=== PATIENT | female | born 1980 | race Caucasian/White ===

== ENCOUNTER 2021-01-26 09:46 | Outpatient (REF) | payer OTHER, SELFPAY ==
[2021-01-26 13:21] LABS: Syphilis Screen Nonreactive (Nonreactive)
[2021-01-26 16:12] LABS: CT PCR NOT DETECTED (Not Detect.); NG PCR NOT DETECTED (Not Detect.)
[2021-01-27 08:21] LABS: BV Int Neg Control Negative (Negative); BV Int Pos Control Positive (Positive)
[2021-01-28 04:30] LABS: HBc Num1 0.06 S/CO (0.00-0.79); HIV AB/AG Nonreactive (Nonreactive); HIV Num 1 0.06 S/CO (0.00-0.99); Hepatitis B Core Antibody Nonreactive (Nonreactive)
[2021-01-28 04:39] LABS: ~HepC Num1 0.15 S/CO (0.00-0.79); ~Hepatitis C Antibody Nonreactive (Nonreactive)
[2021-01-29 09:06] LABS: HPV mRNA E6/E7 rflx Not Detected (Not Detected)
== END 2021-01-26 09:47 | disposition home or self-care (01) ==
LOC: HO.LAB 09:46
PROVIDERS: PCP Internal Medicine; Visit Provider Advanced Practice Midwife
DX: Z01.419 Encounter for gynecological examination (general) (routine) without abnormal findings (principal); Z01.84 Encounter for antibody response examination; Z11.3 Encounter for screening for infections with a predominantly sexual mode of transmission; Z11.4 Encounter for screening for human immunodeficiency virus [HIV]; Z11.51 Encounter for screening for human papillomavirus (HPV); Z11.59 Encounter for screening for other viral diseases; Z20.2 Contact with and (suspected) exposure to infections with a predominantly sexual mode of transmission; N89.8 Other specified noninflammatory disorders of vagina
CPT/HCPCS: 36415; 86704; 86780; 86803; 87389; 87480; 87491; 87510; 87591; 87624; 87660; 88142

== ENCOUNTER 2022-02-28 10:59 | Outpatient (REF) | payer OTHER, SELFPAY ==
[2022-02-28 16:51] LABS: CT PCR NOT DETECTED (Not Detect.); NG PCR NOT DETECTED (Not Detect.)
[2022-03-01 05:38] LABS: HBc Num1 0.09 S/CO (0.00-0.79); HIV AB/AG Nonreactive (Nonreactive); HIV Num 1 0.07 S/CO (0.00-0.99); Hepatitis B Core Antibody Nonreactive (Nonreactive); ~HepC Num1 0.22 S/CO (0.00-0.79); ~Hepatitis C Antibody Nonreactive (Nonreactive)
[2022-03-01 06:01] LABS: Syphilis Screen Nonreactive (Nonreactive)
== END 2022-02-28 11:00 | disposition home or self-care (01) ==
LOC: HO.LAB 10:59
PROVIDERS: Visit Provider Advanced Practice Midwife
DX: Z01.419 Encounter for gynecological examination (general) (routine) without abnormal findings (principal); Z11.3 Encounter for screening for infections with a predominantly sexual mode of transmission; Z11.4 Encounter for screening for human immunodeficiency virus [HIV]; Z20.2 Contact with and (suspected) exposure to infections with a predominantly sexual mode of transmission
CPT/HCPCS: 36415; 86704; 86780; 86803; 87389; 87491; 87591

== ENCOUNTER 2023-05-18 13:38 | Outpatient (AMB) | payer BC, SELFPAY ==
--- NOTE | 2023-05-18 14:14 | MHC.OFFVIS ---
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 Scribed for JARET Milian by Leann Morley center medical director, on 05/18/2023 at 2:25 pm EST. Dietitian Teacher Required: No Information Interpreted: non-clinical & clinical Chief Drafter: Chief Drafter Present (Diana Jordan LISBETH) Accompanied by: Self / Same As Patient Allergies No Known Allergies Allergy (Verified 05/18/23 14:19) Is last menstrual period known: Yes Last menstrual period: 05/09/23 HPI HPI Comments History of Present Illness Details She is a premenopausal woman presenting for annual exam. Doing well with no physician gynecologist concerns. Patient admits she tries to eat a healthy diet including Calcium and Vitamin D. She stays active with exercise. Currently not sexually active. Currently on Xulane and is doing well. Denies vaginal itching and irritation. STD screening offered; she accepts. STD blood work offered; she declines. Denies family hx of breast, colon and ovarian cancer. Last pap smear 01/27/21. UTD on colonoscopy. She denies any contraindications to control such as: migraines with aura, history of DVT or pulmonary emboli, high blood pressure, liver disease, thrombolic disorders, Lupus, +TAMELA, or smoking. 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 Sexual orientation: Straight/Heterosexual Gender identity: Female Female Reproductive History Menstrual Age of Menarche: 14 Date of last menstrual period: 05/09/23 control method: patch Total pregnancies: 0 Date of last pap smear: 01/27/21 Physical Exam Vital Signs: Last Vital Signs BP 110/68 05/18/23 14:17 BMI result Body Mass Index 29.8 Const General: cooperative, healthy appearing, no acute distress, well developed and alert Orientation/consciousness: patient oriented x3 HEENT Head: Yes normal to inspection Eyes General: appearance normal, both eyes and all related structures Neck Neck: Yes normal visual inspection Thyroid: Thyroid normal Chest Chest palpation & inspection: normal inspection of the chest Breast/axilla inspection: normal inspection of the breasts (no puckering, dimpling, peau de orange, retraction, discharge, masses) Breast/axilla palpation: normal palpation of the breasts Resp Effort & Inspection: normal respiratory effort GI Inspection: Yes normal to inspection Palpation (GI): Soft to palpation (to palpation) Rectal Exam - Female: deferred General: Yes bladder normal to inspection External Female Exam: normal external appearance and normal appearance of the urethra Speculum Exam - Vagina: normal appearance of the vagina, normal palpation and normal vaginal discharge Speculum Exam - Cervix: normal appearance of the cervix and normal palpation Bimanual exam- vagina & uterus: normal palpation and normal palpation Bimanual Exam- Adnexa, other: normal adnexae and no masses Skin General skin exam: no rashes or lesions noted Neuro General: patient oriented x3 Cognition (Neuro): normal cognition Extrem General: Yes normal to inspection Psych Attitude: cooperative Thought process: Normal thought process present Assessment & Plan Assessment & Plan (1) Encounter for annual routine gynecological examination: Code(s): Z01.419 - Encounter for gynecological examination (general) (routine) without abnormal findings Plan: Discussed: Current recommendations for pap smears per ASCCP guidelines. Breast awareness and periodic self breast exams. Mammogram ordered. Maintaining a healthy lifestyle including a well balanced diet and routine exercise. Encouraged to use condoms for STD and prevention if become sexually active. All of her questions and concerns were addressed to the best of my ability. RTO in one year for AG. (2) Contraceptive surveillance: Code(s): Z30.40 - Encounter for surveillance of contraceptives, unspecified Plan: Informed of efficacy of Xulane if BMI is >30 She was instructed to go to ER if she develops loss of vision, severe headache that does not resolve, chest pain, diff breathing, abdominal pain, or severe pain or tenderness in extremity. Call the office with any concerns. (3) Potential exposure to STD: Code(s): Z20.2 - Contact with and (suspected) exposure to infections with a predominantly sexual mode of transmission Plan: BV testing and GC/CT panel done today. Await results and treat accordingly. Orders: Orders CT NG by PCR Today Z01.419 - Encounter for gynecological examination (general) (routine) without abnormal findings Medications: Refilled Xulane 150-35 mcg/24 hr (norelgestromin-ethin.estradiol) use 3 patches, then off one week 1 patch transdermal QWEEK 3 weeks 9 patches 4RF NS Coding Level of Care Code Est Pt Prev Care 40-64y(17685) Diagnoses Encounter for annual routine gynecological examination Z01.419 Contraceptive surveillance Z30.40 Potential exposure to STD Z20.2
[2023-05-18 14:17] VITALS: BP 110/68; BMI 29.8
== END 2023-05-18 14:36 | disposition home or self-care (01) ==
PROVIDERS: Visit Provider Advanced Practice Midwife
DX: Z01.419 Encounter for gynecological examination (general) (routine) without abnormal findings (principal); Z30.40 Encounter for surveillance of contraceptives, unspecified; Z20.2 Contact with and (suspected) exposure to infections with a predominantly sexual mode of transmission
CPT/HCPCS: 99396

== ENCOUNTER 2023-05-18 13:38 | Outpatient (REF) | payer BC, SELFPAY ==
[2023-05-19 03:26] LABS: CT PCR NOT DETECTED (Not Detect.); NG PCR NOT DETECTED (Not Detect.)
== END 2023-05-18 13:39 | disposition home or self-care (01) ==
LOC: HO.LNP 13:38
PROVIDERS: Visit Provider Advanced Practice Midwife
DX: Z01.419 Encounter for gynecological examination (general) (routine) without abnormal findings (principal); Z20.2 Contact with and (suspected) exposure to infections with a predominantly sexual mode of transmission
CPT/HCPCS: 0353U

== ENCOUNTER 2023-12-04 03:08 | Inpatient (IN) | payer BC, SELFPAY ==
[2023-12-04] VITALS (11 sets, daily range): BP systolic 95–140; BP diastolic 46–100; PULSE 60–84; RESP 16–20; TEMP 36.6–37.1; O2SAT 96–100; BMI 25.8
--- NOTE | ~2023-12-04 | FL_ITS ---
EXAMINATION: XR FLUOROSCOPY WITH IMAGES CLINICAL INFORMATION: Cholangiogram COMPARISON: Abdomen CT and ultrasound imaging from 12/04/2023. TECHNIQUE: Fluoroscopy Supervised by Dr. Gibbs. Fluoroscopy Time: 38.6 sec. Cumulative Dose: 8.27 mGy. DAP: This information is not provided on the dose summary sheet. Images: 4 images are saved. FL/FL guidance in OR FINDINGS AND IMPRESSION: Please refer to the operative report. The patient is likely undergoing cholecystectomy and a catheter has been placed through the cystic duct. Iodinated contrast fills the common duct and flows into the duodenum. No evidence of common duct dilatation, ductal stone or ductal stricture.
--- NOTE | ~2023-12-04 | US_ITS ---
EXAMINATION: US ABDOMEN LIMITED CLINICAL INFORMATION: Elevated lipase with abdominal pain. COMPARISON: CT abdomen pelvis earlier today TECHNIQUE: Real-time imaging of the right upper quadrant abdominal viscera. FINDINGS: PANCREAS: Normal. LIVER: The liver is mildly enlarged at 17.0 cm The liver contour is normal. Parenchymal echogenicity is normal. No focal hepatic lesion. There is no intrahepatic biliary duct dilatation seen. GALLBLADDER: Some sludge is present in the gallbladder. The gallbladder is physiologically distended without evidence of stones, polyps, wall thickening or pericholecystic fluid. COMMON BILE DUCT: Normal in caliber measuring 0.3 cm in diameter. RIGHT KIDNEY: Normal. No hydronephrosis. No renal calculi or focal parenchymal lesions. The kidney measures 11.4 cm in maximum dimension. FREE FLUID: None. US/US abdomen limited IMPRESSION: Gallbladder sludge.
--- NOTE | ~2023-12-04 | FL_ITS ---
EXAMINATION: XR FLUOROSCOPY WITH IMAGES CLINICAL INFORMATION: ERCP. COMPARISON: Abdominal ultrasound dated 12/04/2023; CT abdomen and pelvis dated 12/04/2023. TECHNIQUE: Fluoroscopy Supervised By: Dr. Augustin Narvaez. Fluoroscopy Time: 229.3 seconds. Cumulative Dose: 63.14 mGy. Images: 16. FINDINGS: The submitted images show an endoscope and injection catheter and guidewire, with injection of the common bile duct and the bilateral hepatic ducts. FL/FL guidance in OR IMPRESSION: Intraoperative fluoroscopic guidance is provided during ERCP. Please see the patient's Operative Report for full procedural details.
--- NOTE | ~2023-12-04 | CT_ITS ---
EXAMINATION: CT ABDOMEN AND PELVIS WITH CONTRAST CLINICAL INFORMATION: Abdominal pain and elevated lipase. COMPARISON: None available. TECHNIQUE: Multidetector volumetric images were obtained from the superior aspect of the liver through the pubic symphysis following administration 85 mL of Omnipaque 350 intravenous contrast. Sagittal and coronal reformatted images were obtained on the technologist's workstation. Oral contrast: No This CT examination was performed using dose optimization techniques as appropriate, variously including the following: *Automated exposure control *Adjustment of mA and/or kV according to patient size (this includes techniques or standardized protocols for targeted exams where dose is matched to indication/reason for exam; i.e. extremities or head) *Use of iterative reconstruction technique DLP: 643 mGy-cm FINDINGS: LUNG BASES: No pulmonary consolidation or pleural effusion. HEPATOBILIARY: Liver has normal size, shape, and attenuation. Gallbladder has a normal appearance. No dilated bile ducts. PANCREAS: Normal. No edema, pancreatic ductal dilatation or mass. SPLEEN: Normal. ADRENAL GLANDS: Normal. KIDNEYS AND URETERS: Kidneys enhance symmetrically. No nephrolithiasis, hydronephrosis or perinephric edema. A focal wedge-shaped cortical defect of the posterior [id number]-tp-[id number] pole of the right kidney is consistent with chronic scarring. This could be sequela of remote pyelonephritis or prior renal infarct. The ureters are unremarkable. BLADDER: Normal. BOWEL AND PERITONEUM: Stomach and small bowel are unremarkable. No dilated loops. No evidence of appendicitis. No colonic wall thickening or mesenteric fat stranding. No free fluid or pneumoperitoneum. ABDOMINAL WALL: Unremarkable. VASCULATURE: Unremarkable. LYMPH NODES: No pathologic sized lymph nodes in the abdomen or pelvis. No inguinal lymphadenopathy. PELVIC VISCERA: No uterine or adnexal mass. No pelvic free fluid. MUSCULOSKELETAL: Unremarkable. CT/CT abdomen pelvis w IV con IMPRESSION: No specific source of pain is identified. No acute imaging abnormalities in the abdomen or pelvis.
[2023-12-04 03:30] LABS: Basophils Percent Auto 0.5 % (0-2); Eosinophils Absolute Auto 0.2 X10*3/uL (0.0-0.4); Hematocrit 39.7 % (37.0-47.0); Hemoglobin 13.3 g/dl (12.0-16.0); Imm Gran Abs Auto 0.03 X10*3/uL (0.00-0.03); Imm Gran Pct Auto 0.4 % (0.0-0.4); Lymphocytes Absolute Auto 3.2 X10*3/uL (1.2-4.9); Lymphocytes Percent Auto 43.3 % (20-40); MANUAL DIFF FLAG NO; Mean Corpuscular HGB Conc 33.5 g/dl (31.0-35.0); Mean Corpuscular Hemoglobin 28.2 pg (27.0-33.0); Mean Corpuscular Volume 84.1 fL (80.0-98.0); Mean Platelet Volume 9.4 fL (9.4-12.3); Monocytes Absolute Auto 0.5 X10*3/uL (0.1-1.2); Monocytes Percent Auto 6.4 % (2-11); Neutrophils Absolute Auto 3.5 x10*3/uL (2.0-8.3); Neutrophils Percent Auto 47.4 % (45-73); Platelet Count 229 X10*3/uL (160-400); Red Blood Count 4.72 X10*6/uL (4.20-5.50); Red Cell Distribution Width 12.7 % (11.0-16.0); White Blood Count 7.4 X10*3/uL (4.8-10.8)
[2023-12-04 03:56] LABS: Alanine Aminotransferase 11 U/L (0-31); Albumin Level 4.1 g/dL (3.5-5.0); Alkaline Phosphatase 64 U/L (39-117); Anion Gap 16 (12-20); Aspartate Amino Transferase 17 U/L (5-31); Bilirubin Total 0.4 mg/dL (0.0-1.0); Blood Urea Nitrogen 14 mg/dL (9-16); Calcium 9.4 mg/dL (8.4-10.2); Carbon Dioxide 23 mmol/L (22-29); Chloride 106 mmol/L (96-108); Estimated Glomerular Filt Rate > 60; Glucose Random 148 mg/dL (60-115); Potassium 3.6 mmol/L (3.3-5.1); Sodium 141 mmol/L (135-145); Total Protein 7.6 g/dL (6.5-8.0)
[2023-12-04 04:26] LABS: Lipase 443 U/L (8-78)
[2023-12-04 05:05] LABS: Ethanol < 10 mg/dL; Lactate Dehydrogenase 132 U/L (122-220); Triglycerides 118 mg/dL (<150)
[2023-12-04] MEDS: ondansetron HCL 4 MG/2 ML VIAL IVPUSH ×2 (05:11→16:05)
--- NOTE | 2023-12-04 05:11 | MHC.EDTECH ---
THIS PCT JUST ASSUMED CARE OF PATIENT ,VITALS TAKEN ,PATIENT URINE SAMPLE COLLECTED AND SENT TO LAB .
[2023-12-04] MEDS: Lactated Ringers 1,000 ML 999 ML IV (05:12)
[2023-12-04 05:13] LABS: Appearance Urine Clear; Color Urine Yellow; Glucose Urine UA Negative (Negative); Leukocyte Esterase Urine Trace (Negative); Nitrite Urine Negative (Negative); PH 5.5 (5.0-9.0); Specific Gravity - Urine 1.025 (1.005-1.025); UMIC TRIGGER UACC YES; Urine Blood Negative (Negative); Urine Ketones Trace mg/dL (Negative); Urine Protein Negative (Neg-Trace)
[2023-12-04 05:15] LABS: UPreg QC Valid YES; Urine Pregnancy NEGATIVE (NEGATIVE)
--- NOTE | 2023-12-04 05:15 | ED.ABDPAIN ---
HPI - Abdominal Pain General Chief Complaint: Abdominal Pain Stated Complaint: abd pain Time Seen by Provider: 12/04/23 04:54 Source: patient and old records reviewed Mode of arrival: ambulatory Limitations: no limitations History of Present Illness HPI narrative: 43 yo female with no sig PMH no surgeries reports intense upper abdominal pain with nausea causing sweats from 1am to 3am now much improved this happened 1 month ago but now is much better. Has normal dinner turkey and nova chili. She states she feels much better now. MD elicited complaint: abdominal pain Pertinent past history: none Onset (ago): hour(s) (between 1-3am) Pain Consistency: constant Location: epigastric Severity: severe Quality: stabbing Radiation: LUQ and RUQ Migration to: no migration Exacerbating factors: movement Relieving factors: nothing Associated symptoms: nausea and other (sweats) Related Data Previous Rx's ?Medication ?Instructions ?Recorded Xulane 150 mcg-35 mcg/24 hr 1 patch transdermal QWEEK 3 weeks 05/18/23 transdermal patch #9 patches (norelgestromin-ethin.estradiol) Allergies Allergy/AdvReac Type Severity Reaction Status Date / Time No Known Allergies Allergy Verified 12/04/23 03:18 Review of Systems Review of Systems Constitutional : No Weight loss, No Fever, No Chills ENT/Mouth : No sore throat, No Rhinorrhea Eyes: No Swelling, No Redness Cardiovascular : No Chest Pain, No SOB, No Edema Respiratory : No Cough, No Sputum, No Wheezing Gastrointestinal : Positive Nausea, no Vomiting, no Diarrhea, positive abdominal Pain, No Hematochezia, No Melena Genitourinary : No Dysuria, No Urinary Frequency, No Hematuria, No Urgency Musculoskeletal : No joint pain, No Myalgias, No Joint Swelling Skin : No Skin Lesions, No rash Neuro : No Weakness, No Numbness, No Dizziness, No Headache Psych : No Anxiety/Panic, No Depression All other systems reviewed and are negative. [facility] Past Medical History Attestation statement: The following information was validated with the patient. 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 Oriented X3. No acute distress. Eyes: Pupils equal, round and reactive to light. ENT: Pharynx normal. Neck: Normal inspection. Neck supple. CVS: Normal heart rate and rhythm. Pulses normal. Respiratory: No respiratory distress. Breath sounds normal. Abdomen: Soft and mild epigastric ttp no rebound Skin: Skin warm and dry. Normal skin color. Normal skin turgor. Extremities: No lower extremity edema. No calf ttp Neuro: Oriented X 3. No motor deficit. No sensory deficit. Medical Decision Making Medical Decision Making [facility] Narrative: 43 yo female with no sig PMH here with c/o severe upper abdominal pain that has since improved she had nausea her triage lipase is elevated - denies hx of ETOH use, no known gallstones at this time labs, IVF, pain control, CT scan for stone/pancreatitis ordered. Differential Diagnosis Differential Diagnoses: The differential diagnosis associated with the presentation includes biliary colic, PUD, pancreatitis, abdominal pain Admission/Observation Consideration of admission/observation: Escalation of care including admission/observation considered lipase continues to trend up will sign out to Dr. Holm pending CT scan and repeat labs Lab Data [facility] Lab Attestation statement: I reviewed the patient's lab results. 12/04/23 03:23 12/04/23 03:23 Labs: Lab Results 05/02/1912/04/23 12/04/23 Range/Units 03:23 05:07 05:44 WBC 7.4 (4.8-10.8) X10*3/uL RBC 4.72 (4.20-5.50) X10*6/uL Hgb 13.3 (12.0-16.0) g/dl Hct 39.7 (37.0-47.0) % MCV 84.1 (80.0-98.0) fL MCH 28.2 (27.0-33.0) pg MCHC 33.5 (31.0-35.0) g/dl RDW 12.7 (11.0-16.0) % Plt Count 229 (160-400) X10*3/uL MPV 9.4 (9.4-12.3) fL Immature Gran % (Auto) 0.4 (0.0-0.4) % Neut % (Auto) 47.4 (45-73) % Lymph % (Auto) 43.3 H (20-40) % [place] % (Auto) 6.4 (2-11) % Eos % (Auto) 2.0 (0-4) % Baso % (Auto) 0.5 (0-2) % Lymph # (Auto) 3.2 (1.2-4.9) X10*3/uL [place] # (Auto) 0.5 (0.1-1.2) X10*3/uL Eos # (Auto) 0.2 (0.0-0.4) X10*3/uL Baso # (Auto) 0.0 (0.0-0.2) X10*3/uL Abs Immat Gran (auto) 0.03 (0.00-0.03) X10*3/uL Absolute Neuts (auto) 3.5 (2.0-8.3) x10*3/uL Absolute Nucleated RBC 0.000 (0.0-0.012) X10*3/uL Nucleated RBC % (auto) 0.0 (0.0-0.2) /100WBC Sodium 141 (135-145) mmol/L Potassium 3.6 (3.3-5.1) mmol/L Chloride 106 (96-108) mmol/L Carbon Dioxide 23 (22-29) mmol/L Anion Gap 16 (12-20) BUN 14 (9-16) mg/dL Creatinine 0.80 (0.5-1.4) mg/dL Estim Creat Clear Calc 100.0 Estimated GFR > 60 Random Glucose 148 H (60-115) mg/dL Calcium 9.4 (8.4-10.2) mg/dL Total Bilirubin 0.4 (0.0-1.0) mg/dL AST 17 (5-31) U/L ALT 11 (0-31) U/L Alkaline Phosphatase 64 (39-117) U/L Lactate Dehydrogenase 132 (122-220) U/L Total Protein 7.6 (6.5-8.0) g/dL Albumin 4.1 (3.5-5.0) g/dL Triglycerides 118 (<150) mg/dL Lipase 443 H 886 H (8-78) U/L Urine Color Yellow Urine Appearance Clear Urine pH 5.5 (5.0-9.0) Ur Specific [place] 1.025 (1.005-1.025) Urine Protein Negative (Neg-Trace) mg/dL Urine Glucose (UA) Negative (Negative) mg/dL Urine Ketones Trace (Negative) mg/dL Urine Blood Negative (Negative) Urine Nitrite Negative (Negative) Ur Leukocyte Esterase Trace H (Negative) Urine RBC 0-2 (0-2) /HPF Urine WBC 0-5 (0-5) /HPF Ur Squamous Epith Cells 0-2 (0-2) /HPF Urine Bacteria None Seen (None Seen) Hyaline Casts 0-2 (0-2) /LPF Urine Test NEGATIVE (NEGATIVE) Ethyl Alcohol < 10 mg/dL Independent Interpretation I performed an independent interpretation of an: CT Scan Independent Historian Clinical information obtained from an independent historian. History obtained from or confirmed by: Friend Medications Administered Discontinued Medications Generic Name Dose Route Start Last Admin Trade Name Freq PRN Reason Stop Dose Admin Lactated Ringer's 1,000 mls @ 999 mls/hr 12/04/23 05:00 12/04/23 05:12 Lr IV 12/04/23 06:00 999 mls/hr .Q1H1M ALVAREZ Administration Iohexol 85 ml 12/04/23 05:30 12/04/23 05:30 Iohexol 350 Mg/Ml 100 Ml Infus..Btl IV 12/04/23 05:31 85 ml ONCE ONE Administration Morphine Sulfate 4 mg 12/04/23 04:52 12/04/23 05:25 Morphine Sulfate 4 Mg/Ml Cartridge IVPUSH 12/04/23 04:53 Not Given ONCE ONE Protocol Ondansetron HCl 4 mg 12/04/23 04:52 12/04/23 05:11 Ondansetron Hcl 4 Mg/2 Ml Vial IVPUSH 12/04/23 04:53 4 mg ONCE ONE Administration Discharge Plan Discharge Clinical Impression: Abdominal pain, Elevated lipase Patient Disposition: Still a Patient Prescriptions: No Action Xulane 150-35 mcg/24 hr patch weekly 1 patch transdermal QWEEK 21 Days Qty: 9 4RF Rx Instructions: use 3 patches, then off one week Print Language: Tunisian
[2023-12-04 05:25] LABS: Bacteria Urine None Seen (None Seen); Hyaline Casts Urine 0-2 /LPF (0-2); RBC Urine 0-2 /HPF (0-2); Squamous Epithelial Cell Urine 0-2 /HPF (0-2); WBC Urine 0-5 /HPF (0-5)
[2023-12-04] MEDS: iohexoL 350 MG/ML 100 ML INFUS..BTL 85 ML IV (05:30)
[2023-12-04 06:16] LABS: Lipase 886 U/L (8-78)
[2023-12-04 07:08] LABS: Bilirubin Direct 0.2 mg/dL (0.0-0.5)
[2023-12-04] MEDS: Ketorolac Tromethamine 15 MG/ML VIAL IVPUSH (07:08)
[2023-12-04 10:29] LABS: Alanine Aminotransferase 12 U/L (0-31); Albumin Level 3.5 g/dL (3.5-5.0); Alkaline Phosphatase 56 U/L (39-117); Anion Gap 14 (12-20); Aspartate Amino Transferase 14 U/L (5-31); Bilirubin Total 0.3 mg/dL (0.0-1.0); Blood Urea Nitrogen 12 mg/dL (9-16); Calcium 9.1 mg/dL (8.4-10.2); Carbon Dioxide 21 mmol/L (22-29); Chloride 109 mmol/L (96-108); Creatinine Clr Calc Pharmacy 108.1; Estimated Glomerular Filt Rate > 60; Glucose Random 92 mg/dL (60-115); Lipase 225 U/L (8-78); Sodium 140 mmol/L (135-145); Total Protein 6.6 g/dL (6.5-8.0)
--- NOTE | 2023-12-04 15:04 | P.HPHOSP_ITS ---
History of Present Illness Date of Service: 12/04/23 Attending physician on admission: [facility] Chief Complaint: abd pain 43 year old female without any significnat PMH presented to the ed earlier today for evaluation of abdominal pain. Report she woke abruptly around 1 am with severe diffuse abdominal pain without any associated fevers, chills, nausea, vomiting, diarrhea, melena, hematochezia. She does report diaphoresis. No sob, lightheadedness, chest pain. No history of prior pain. She tells me for the last 5 months has been working on weight loss and has lost 25 pounds through health diet lower in fat/carbs/calories and increased exercise with weight training. She very rarely consumes alcohol, last drink was 1 aaron on sunday. No drugs or cigarettes. On arrival, VSS. Hematology studies unremarkable. Renal function and electrolyte levels normal. Initial lipase was 443 which was repeated 2 hours later and elevated at 886. CT abdomen/pelvis was negative for any acute intra-abdominal abnormality including acute pancreatitis and pain did ultimately improve. Lipase was again repeated and had decreased to 225. Triglyceride levels normal at 116. LFTs WNL. Ultrasound of the right upper quadrant revealed gallbladder sludge but no obstructing stones. Urinalysis unremarkable. In the ED, given IV ketorolac, 1 L LR, and ondansetron. She will be observed overnight for possible gallstone pancreatitis. Review of Systems 2 Review of Systems: General: +diaphoresis. No fevers, malaise, unintentional weight loss HEENT: No blurred vision, diplopia. No sore throat, nasal congestion, rhinorrhea, sinus pain, ear pain Cardiovascular: No chest pain, palpitations, or leg edema Respiratory: No shortness of breath, wheezing, cough GI: +abd pain. No abdominal pain, nausea, vomiting, diarrhea, constipation, melena, hematochezia : No dysuria, hematuria, increased urinary frequency, decreased urinary output MSK: No myalgia, back pain Neuro: No headaches, weakness, paresthesias Skin: No rashes or lesions [facility] Medical History Pyelonephritis Family History Brother Heart attack, Onset Age: 42 Family/Other Heart attack, Onset Age: 42 Surgical History Hx of wisdom tooth extraction Social History Household Members: None Housing: Apartment Alcohol intake: never Patient Tobacco Use Status: Never used Tobacco Smoked in Last 30 Days: No Use of substances other than those prescribed or required for medical reasons: No Advance Directives: No Advance Directives Information Provided: No Do you have a plan to hurt others: No Plan Patient : No Current occupational status: employed 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 Sexual orientation: Straight/Heterosexual Gender identity: Female Meds Allergies Allergy/AdvReac Type Severity Reaction Status Date / Time No Known Allergies Allergy Verified 12/04/23 03:18 Home Medications ?Medication ?Instructions ?Recorded ?Confirmed ?Last Taken ?Type Probiotic 1 cap PO DAILY 12/04/23 12/04/23 Unknown History ibuprofen 200 mg tablet 400 mg PO Q6H PRN Pain 12/04/23 12/04/23 Unknown History norelgestromin 150 mcg-e.estradiol 1 patch transdermal QMONTH 12/04/23 12/04/23 12/02/23 History 35 mcg/24 hr weekly transderm patch (Xulane) Physical Exam 2 Vital Signs and Narrative: Vital Signs: Last Vital Signs Temp 98.4 F 12/04/23 14:56 Pulse 64 12/04/23 14:56 Resp 18 12/04/23 14:56 BP 108/56 L 12/04/23 14:56 Pulse Ox 96 12/04/23 14:56 O2 Del Method Room Air 12/04/23 14:56 BMI result Body Mass Index 25.8 Constitutional - Awake and Alert, No apparent distress Eyes - PERRLA, EOMI Cardiovascular - S1S2, RRR, No edema Respiratory - Normal lung expansion, Normal respiratory effort, No respiratory distress, CTA bilaterally Gastrointestinal - NT / ND; +BS; No rebound or guarding Extremities - no calf tenderness bilaterally, no swelling Skin - Warm/Dry Neurological - Alert & oriented x3 Psychological - Appropriate affect Results Labs 12/04/23 03:23 12/04/23 09:59 Labs: Laboratory Results - last 24 hr 12/04/23 12/04/23 12/04/23 03:23 05:07 05:44 MCV 84.1 MCH 28.2 MCHC 33.5 RDW 12.7 Plt Count 229 MPV 9.4 Immature Gran % (Auto) 0.4 Neut % (Auto) 47.4 Lymph % (Auto) 43.3 H [place] % (Auto) 6.4 Eos % (Auto) 2.0 Baso % (Auto) 0.5 Lymph # (Auto) 3.2 [place] # (Auto) 0.5 Eos # (Auto) 0.2 Baso # (Auto) 0.0 Abs Immat Gran (auto) 0.03 Absolute Neuts (auto) 3.5 Absolute Nucleated RBC 0.000 Nucleated RBC % (auto) 0.0 Anion Gap 16 Estim Creat Clear Calc 100.0 Estimated GFR > 60 Random Glucose 148 H Calcium 9.4 Total Bilirubin 0.4 Direct Bilirubin 0.2 AST 17 ALT 11 Alkaline Phosphatase 64 Lactate Dehydrogenase 132 Total Protein 7.6 Albumin 4.1 Triglycerides 118 Lipase 443 H 886 H Urine Color Yellow Urine Appearance Clear Urine pH 5.5 Ur Specific [place] 1.025 Urine Protein Negative Urine Glucose (UA) Negative Urine Ketones Trace Urine Blood Negative Urine Nitrite Negative Ur Leukocyte Esterase Trace H Urine RBC 0-2 Urine WBC 0-5 Ur Squamous Epith Cells 0-2 Urine Bacteria None Seen Hyaline Casts 0-2 Urine Test NEGATIVE Ethyl Alcohol < 10 12/04/23 09:59 MCV MCH MCHC RDW Plt Count MPV Immature Gran % (Auto) Neut % (Auto) Lymph % (Auto) [place] % (Auto) Eos % (Auto) Baso % (Auto) Lymph # (Auto) [place] # (Auto) Eos # (Auto) Baso # (Auto) Abs Immat Gran (auto) Absolute Neuts (auto) Absolute Nucleated RBC Nucleated RBC % (auto) Anion Gap 14 Estim Creat Clear Calc 108.1 Estimated GFR > 60 Random Glucose 92 Calcium 9.1 Total Bilirubin 0.3 Direct Bilirubin AST 14 ALT 12 Alkaline Phosphatase 56 Lactate Dehydrogenase Total Protein 6.6 Albumin 3.5 Triglycerides Lipase 225 H Urine Color Urine Appearance Urine pH Ur Specific [place] Urine Protein Urine Glucose (UA) Urine Ketones Urine Blood Urine Nitrite Ur Leukocyte Esterase Urine RBC Urine WBC Ur Squamous Epith Cells Urine Bacteria Hyaline Casts Urine Test Ethyl Alcohol Imaging Radiologist's Impressions: Impressions Abdomen/Pelvis CT 12/04/23 05:30 IMPRESSION: No specific source of pain is identified. No acute imaging abnormalities in the abdomen or pelvis. Abdomen Ultrasound 12/04/23 09:54 IMPRESSION: Gallbladder sludge. Assessment and Plan (1) Acute pancreatitis: Status: Acute (2) Biliary sludge: Status: Acute Plan 43 year old female without any significant PMH to be observed for gallstone pancreatitis. #Acute abdominal pain- r/t passed gallstone causing acute pancreatitis -Lipase 400 --> 800 --> 225. LFTs wnl. Triglycerides WNL. Ct without evidence of acute intraabdominal abn. US abd shows gallbladder sludge -Continue ivf -clear liquid diet, advance as tolerated -antiemetics prn -pain management prn -general surgery consult DVT prophylaxis- SCPs, early ambulation full code Quality Stroke Does the patient have a stroke diagnosis?: No VTE Prior VTE?: No VTE Risk Level:: Medical - moderate - high VTE Device Contraindication: N/A - Device Ordered VTE Drug Contraindication: Treatment Not Indicated
--- NOTE | 2023-12-04 15:09 | PHA.MEDREC ---
Pharmacy Consult ? Medication Reconciliation Pharmacy has completed the medication reconciliation. Patient reported medicaitons. Alexandria Bradley, RosalinaD
[2023-12-04] MEDS: 0.9 % Sodium Chloride 1,000 ML 100 ML IVCONT (15:58)
--- NOTE | 2023-12-04 16:00 | PM.CNGS ---
History of Present Illness Consult details Consult date: 12/04/23 Narrative: Patient is an otherwise healthy 43-year-old female who presents here with acute onset of epigastric/upper abdominal pain. She has never had this before. Otherwise has regular bowel habits. Never been jaundiced before. Has never had any biliary symptoms. Patient is a nondrinker. Workup including scans and labs consistent with presumptive diagnosis of gallstone pancreatitis. Chart was reviewed and patient evaluated PMFSH Past Medical History Medical History Pyelonephritis Family History Family History Brother Heart attack, Onset Age: 42 Family/Other Heart attack, Onset Age: 42 Surgical History Surgical History Hx of wisdom tooth extraction Social History Social History Household Members: None Housing: Apartment Alcohol intake: never Patient Tobacco Use Status: Never used Tobacco Smoked in Last 30 Days: No Use of substances other than those prescribed or required for medical reasons: No Advance Directives: No Advance Directives Information Provided: No Do you have a plan to hurt others: No Plan Patient : No Current occupational status: employed 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 Sexual orientation: Straight/Heterosexual Gender identity: Female Meds Allergies Allergy/AdvReac Type Severity Reaction Status Date / Time No Known Allergies Allergy Verified 12/04/23 03:18 Active Medications: Current Medications Acetaminophen (Acetaminophen 325 Mg Tablet) 650 mg PO Q6H PRN PRN Reason: Pain, Mild (Pain Scale 1-3) Sodium Chloride (Ns) 1,000 mls @ 100 mls/hr IVCONT .Q10H ALVAREZ Morphine Sulfate (Morphine Sulfate 2 Mg/Ml Cartridge) 2 mg IVPUSH Q4H PRN; Protocol PRN Reason: Pain, Severe (Pain Scale 7-10) Ondansetron HCl (Ondansetron Hcl 4 Mg/2 Ml Vial) 4 mg IVPUSH Q8H PRN PRN Reason: Nausea and Vomiting Oxycodone HCl (Oxycodone Hcl Immed Release 5 Mg Tablet) 5 mg PO Q6H PRN PRN Reason: Pain, Moderate(Pain Scale 4-6) Senna (Sennosides 8.6 Mg Tablet) 17.2 mg PO BEDTIME PRN PRN Reason: Constipation Home Medications ?Medication ?Instructions ?Recorded ?Confirmed ?Last Taken ?Type Probiotic 1 cap PO DAILY 12/04/23 12/04/23 Unknown History ibuprofen 200 mg tablet 400 mg PO Q6H PRN Pain 12/04/23 12/04/23 Unknown History norelgestromin 150 mcg-e.estradiol 1 patch transdermal QMONTH 12/04/23 12/04/23 12/02/23 History 35 mcg/24 hr weekly transderm patch (Xulane) Physical Exam Vital Signs: Vital Signs: Last Vital Signs Temp 98.4 F 12/04/23 14:56 Pulse 84 12/04/23 15:06 Resp 18 12/04/23 14:56 BP 113/71 12/04/23 15:06 Pulse Ox 96 12/04/23 14:56 O2 Del Method Room Air 12/04/23 14:56 BMI result Body Mass Index 25.8 Eyes: Other: Anicteric Chest: Other: Chest breath sounds bilaterally, HS 1 in 2 GI: Other: Abdomen modestly corpulent, soft, mild epigastric tenderness but no evidence of any guarding, rebound, rigidity Results Labs 12/04/23 03:23 12/04/23 09:59 Labs: Abnormal lab results 12/04/23 12/04/23 12/04/23 Range/Units 03:23 05:07 05:44 Lymph % (Auto) 43.3 H (20-40) % Chloride (96-108) mmol/L Carbon Dioxide (22-29) mmol/L Random Glucose 148 H (60-115) mg/dL Lipase 443 H 886 H (8-78) U/L Ur Leukocyte Esterase Trace H (Negative) 12/04/23 Range/Units 09:59 Lymph % (Auto) (20-40) % Chloride 109 H (96-108) mmol/L Carbon Dioxide 21 L (22-29) mmol/L Random Glucose (60-115) mg/dL Lipase 225 H (8-78) U/L Ur Leukocyte Esterase (Negative) Short CBC 12/04/23 Range/Units 03:23 WBC 7.4 (4.8-10.8) X10*3/uL Hgb 13.3 (12.0-16.0) g/dl Hct 39.7 (37.0-47.0) % Plt Count 229 (160-400) X10*3/uL BMP 12/04/23 12/04/23 03:23 09:59 Sodium 141 140 Potassium 3.6 4.0 Chloride 106 109 H Carbon Dioxide 23 21 L BUN 14 12 Creatinine 0.80 0.74 Calcium 9.4 9.1 Liver Function 12/04/23 12/04/23 Range/Units 03:23 09:59 Total Bilirubin 0.4 0.3 (0.0-1.0) mg/dL Direct Bilirubin 0.2 (0.0-0.5) mg/dL AST 17 14 (5-31) U/L ALT 11 12 (0-31) U/L Alkaline Phosphatase 64 56 (39-117) U/L Albumin 4.1 3.5 (3.5-5.0) g/dL Urine 12/04/23 Range/Units 05:07 Urine Color Yellow Urine Appearance Clear Urine pH 5.5 (5.0-9.0) Ur Specific [place] 1.025 (1.005-1.025) Urine Protein Negative (Neg-Trace) mg/dL Urine Glucose (UA) Negative (Negative) mg/dL Urine Test NEGATIVE (NEGATIVE) All other labs normal. Assessment and Plan (1) Biliary sludge: Status: Acute (2) Acute pancreatitis: Status: Acute Plan Presumptive diagnosis of gallstone pancreatitis. Patient is currently undergoing restorative measures with serial exams and labs. Consideration for laparoscopic cholecystectomy once patient is clinically stable and labs normalize would be considered. This was reviewed with the patient. All questions answered. Further interventions /studies will be directed by the patient's clinical course. Consider GI consultation as well. Procedures Date of Service Date of Service: 12/04/23
[2023-12-05] VITALS (13 sets, daily range): BP systolic 109–134; BP diastolic 54–87; PULSE 56–83; RESP 15–19; TEMP 36.4–37.2; O2SAT 96–100; BMI 25.4; BMI 30.1
[2023-12-05] MEDS: ondansetron HCL 4 MG/2 ML VIAL IVPUSH ×2 (00:20→16:54)
[2023-12-05] MEDS: 0.9 % Sodium Chloride 1,000 ML 100 ML IVCONT ×2 (00:20→11:03)
[2023-12-05 06:32] LABS: MANUAL DIFF FLAG NO
[2023-12-05 06:39] LABS: Basophils Percent Auto 0.6 % (0-2); Eosinophils Absolute Auto 0.2 X10*3/uL (0.0-0.4); Eosinophils Percent Auto 2.6 % (0-4); Hematocrit 34.7 % (37.0-47.0); Hemoglobin 11.2 g/dl (12.0-16.0); Imm Gran Abs Auto 0.04 X10*3/uL (0.00-0.03); Imm Gran Pct Auto 0.6 % (0.0-0.4); Lymphocytes Absolute Auto 2.3 X10*3/uL (1.2-4.9); Mean Corpuscular HGB Conc 32.3 g/dl (31.0-35.0); Mean Corpuscular Hemoglobin 28.1 pg (27.0-33.0); Mean Corpuscular Volume 87.2 fL (80.0-98.0); Mean Platelet Volume 9.4 fL (9.4-12.3); Monocytes Absolute Auto 0.5 X10*3/uL (0.1-1.2); Monocytes Percent Auto 7.1 % (2-11); Neutrophils Absolute Auto 4.1 x10*3/uL (2.0-8.3); Neutrophils Percent Auto 57.1 % (45-73); Platelet Count 166 X10*3/uL (160-400); Red Blood Count 3.98 X10*6/uL (4.20-5.50); Red Cell Distribution Width 12.7 % (11.0-16.0); White Blood Count 7.2 X10*3/uL (4.8-10.8)
[2023-12-05 06:50] LABS: Anion Gap 12 (12-20); Blood Urea Nitrogen 12 mg/dL (9-16); Calcium 8.1 mg/dL (8.4-10.2); Carbon Dioxide 21 mmol/L (22-29); Chloride 110 mmol/L (96-108); Estimated Glomerular Filt Rate > 60; Glucose Random 67 mg/dL (60-115); Sodium 139 mmol/L (135-145)
--- NOTE | 2023-12-05 07:38 | P.PNIM_ITS ---
Subjective Subjective Date of Service: 12/05/23 Interval History: Seen in follow-up for gallstone pancreatitis Interval history: So reporting 2-3/10 right upper quadrant pain. No nausea or vomiting. No other complaints at this time. Plan for lap george later today Review of Systems Review of Systems: Yes all other systems are reviewed and are negative Physical Exam 2 Vital Signs: Vital Signs: Last Vital Signs Temp 98.0 F 12/05/23 04:55 Pulse 64 12/05/23 04:55 Resp 19 12/05/23 04:55 BP 109/68 12/05/23 04:55 Pulse Ox 99 12/05/23 04:55 O2 Del Method Room Air 12/05/23 04:55 BMI result Body Mass Index 25.8 Constitutional - Awake and Alert, No apparent distress Eyes - PERRLA, EOMI Cardiovascular - S1S2, RRR, No edema Respiratory - Normal lung expansion, Normal respiratory effort, No respiratory distress, CTA bilaterally Gastrointestinal - RUQ ttp with + lloyd sign. ND; +BS; No rebound Extremities - no calf tenderness bilaterally, no swelling Skin - Warm/Dry Neurological - Alert & oriented x3 Psychological - Appropriate affect Objective Data Active Medications Acetaminophen (Acetaminophen 325 Mg Tablet) 650 mg PO Q6H PRN PRN Reason: Pain, Mild (Pain Scale 1-3) Sodium Chloride (Ns) 1,000 mls @ 100 mls/hr IVCONT .Q10H ALVAREZ Last Admin: 12/05/23 00:20 Dose: 100 mls/hr Documented By: WILLIAM Cefotetan Disodium 2 gm/ (Sodium Chloride) 50 mls @ 100 mls/hr IV PREOP ONE Stop: 12/05/23 07:44 Morphine Sulfate (Morphine Sulfate 2 Mg/Ml Cartridge) 2 mg IVPUSH Q4H PRN; Protocol PRN Reason: Pain, Severe (Pain Scale 7-10) Ondansetron HCl (Ondansetron Hcl 4 Mg/2 Ml Vial) 4 mg IVPUSH Q8H PRN PRN Reason: Nausea and Vomiting Last Admin: 12/05/23 00:20 Dose: 4 mg Documented By: WILLIAM Oxycodone HCl (Oxycodone Hcl Immed Release 5 Mg Tablet) 5 mg PO Q6H PRN PRN Reason: Pain, Moderate(Pain Scale 4-6) Senna (Sennosides 8.6 Mg Tablet) 17.2 mg PO BEDTIME PRN PRN Reason: Constipation Labs 12/05/23 06:26 12/05/23 06:26 Labs: Laboratory Results - last 24 hr 12/04/23 12/05/23 09:59 06:26 MCV 87.2 MCH 28.1 MCHC 32.3 RDW 12.7 Plt Count 166 D MPV 9.4 Immature Gran % (Auto) 0.6 H Neut % (Auto) 57.1 Lymph % (Auto) 32.0 [place] % (Auto) 7.1 Eos % (Auto) 2.6 Baso % (Auto) 0.6 Lymph # (Auto) 2.3 [place] # (Auto) 0.5 Eos # (Auto) 0.2 Baso # (Auto) 0.0 Abs Immat Gran (auto) 0.04 H Absolute Neuts (auto) 4.1 Absolute Nucleated RBC 0.000 Nucleated RBC % (auto) 0.0 Anion Gap 14 12 Estim Creat Clear Calc 108.1 100.0 Estimated GFR > 60 > 60 Random Glucose 92 67 Calcium 9.1 8.1 L D Total Bilirubin 0.3 AST 14 ALT 12 Alkaline Phosphatase 56 Total Protein 6.6 Albumin 3.5 Lipase 225 H Assessment and Plan (1) Biliary sludge: Status: Acute (2) Acute pancreatitis: Status: Acute Plan 43 year old female without any significant PMH to be observed for gallstone pancreatitis. #Acute gallstone pancreatitis -Lipase 400 --> 800 --> 225. LFTs wnl. Triglycerides WNL. Ct without evidence of acute intraabdominal abn. US abd shows gallbladder sludge -s/p lap george with cholangiogram 12/04. Per operative report, multiple small stones in the common bile duct with flow entering the duodenum seen -per GI, plan for ERCP tomorrow. NPO after midnight -Continue ivf -antiemetics prn -pain management prn -general surgery input appreciated. Gastroenterology input appreciated DVT prophylaxis- SCPs, early ambulation full code Pt requires inpatient stay at least 2 midnights for management of acute gallstone pancreatitis s/p lap cholecystectomy with evidence of gallstones in the common bile duct putting patient at risk for recurrent gallstone pancreatitis and will undergo ERCP tomorrow with ongoing expert consultation Quality Stroke Does the patient have a stroke diagnosis?: No VTE Prior VTE?: No VTE Risk Level:: Medical - moderate - high VTE Device Contraindication: N/A - Device Ordered VTE Drug Contraindication: Treatment Not Indicated
--- NOTE | 2023-12-05 09:28 | PC.NURSE ---
report given to SSS, SSS to pick patient up around 10am
--- NOTE | 2023-12-05 10:13 | PM.PNGS ---
Subjective Subjective Date of Service: 12/05/23 <Yamila Holland PA-C - Last Filed: 12/05/23 10:16> 12/05/23 <Percy Gibbs MD - Last Filed: 12/05/23 15:01> Interval history: She reports mild epigastric pain, significantly improved from admission. Reports 1 prior episode of similar pain about a month ago. <Yamila Holland PA-C - Last Filed: 12/05/23 10:16> Physical Exam Vital Signs: Vital Signs: Last Vital Signs Temp 98.0 F 12/05/23 04:55 Pulse 64 12/05/23 04:55 Resp 19 12/05/23 04:55 BP 109/68 12/05/23 04:55 Pulse Ox 99 12/05/23 04:55 O2 Del Method Room Air 12/05/23 04:55 BMI result Body Mass Index 25.8 <DAREK Hill Last Filed: 12/05/23 10:16> Const: General: comfortable, no acute distress and alert <Yamila Holland PA-C - Last Filed: 12/05/23 10:16> Orientation/consciousness: patient oriented x3 <DAREK Hill Last Filed: 12/05/23 10:16> Resp: Effort & Inspection: normal respiratory effort <DAREK Hill Last Filed: 12/05/23 10:16> GI: Inspection: No distended <DAREK Hill Last Filed: 12/05/23 10:16> Palpation (GI): Soft to palpation and Tenderness to palpation present (GI) in the epigastrum and in the RUQ; Espitia's sign negative and with no rebound tenderness <DAREK Hill Last Filed: 12/05/23 10:16> Skin: General skin exam: no rashes or lesions noted and no jaundice <DAREK Hill Last Filed: 12/05/23 10:16> Neuro: General: patient oriented x3 and moves all extremities <DAREK Hill Last Filed: 12/05/23 10:16> Objective Data Active Medications Acetaminophen (Acetaminophen 325 Mg Tablet) 650 mg PO Q6H PRN PRN Reason: Pain, Mild (Pain Scale 1-3) Sodium Chloride (Ns) 1,000 mls @ 100 mls/hr IVCONT .Q10H ALVAREZ Last Admin: 12/05/23 00:20 Dose: 100 mls/hr Documented By: WILLIAM Morphine Sulfate (Morphine Sulfate 2 Mg/Ml Cartridge) 2 mg IVPUSH Q4H PRN; Protocol PRN Reason: Pain, Severe (Pain Scale 7-10) Non-Formulary Medication (Norelgestromin-Ethin.Estradiol [Xulane]) 1 patch TRANSDERMA Q30D ALVAREZ Ondansetron HCl (Ondansetron Hcl 4 Mg/2 Ml Vial) 4 mg IVPUSH Q8H PRN PRN Reason: Nausea and Vomiting Last Admin: 12/05/23 00:20 Dose: 4 mg Documented By: WILLIAM Oxycodone HCl (Oxycodone Hcl Immed Release 5 Mg Tablet) 5 mg PO Q6H PRN PRN Reason: Pain, Moderate(Pain Scale 4-6) Senna (Sennosides 8.6 Mg Tablet) 17.2 mg PO BEDTIME PRN PRN Reason: Constipation <Yamila Holland PA-C - Last Filed: 12/05/23 10:16> Labs CBC & Chem 7: 12/05/23 06:26 12/05/23 06:26 <Yamila Holland PA-C - Last Filed: 12/05/23 10:16> Labs: Laboratory Results - last 24 hr 12/04/23 12/05/23 09:59 06:26 MCV 87.2 MCH 28.1 MCHC 32.3 RDW 12.7 Plt Count 166 D MPV 9.4 Immature Gran % (Auto) 0.6 H Neut % (Auto) 57.1 Lymph % (Auto) 32.0 [place] % (Auto) 7.1 Eos % (Auto) 2.6 Baso % (Auto) 0.6 Lymph # (Auto) 2.3 [place] # (Auto) 0.5 Eos # (Auto) 0.2 Baso # (Auto) 0.0 Abs Immat Gran (auto) 0.04 H Absolute Neuts (auto) 4.1 Absolute Nucleated RBC 0.000 Nucleated RBC % (auto) 0.0 Anion Gap 14 12 Estim Creat Clear Calc 108.1 100.0 Estimated GFR > 60 > 60 Random Glucose 92 67 Calcium 9.1 8.1 L D Total Bilirubin 0.3 AST 14 ALT 12 Alkaline Phosphatase 56 Total Protein 6.6 Albumin 3.5 Lipase 225 H <Yamila Holland PA-C - Last Filed: 12/05/23 10:16> Procedures Date of Service Date of Service: 12/05/23 <Yamila Holland PA-C - Last Filed: 12/05/23 10:16> 12/05/23 <Percy Gibbs MD - Last Filed: 12/05/23 15:01> Progress Note: A&P Assessment and plan (1) Acute pancreatitis: Status: Acute <DAREK Hill Last Filed: 12/05/23 10:16> (2) Biliary sludge: Status: Acute <Yamila Holland PA-C - Last Filed: 12/05/23 10:16> Assessment and Plan: 43 year old female admitted with presumed gallstone pancreatitis. Her symptoms have significantly improved and lipase downtrended last night. Discussed proceeding with laparoscopy cholecystectomy possible open during this admission to prevent recurrence or advancing diet and if tolerating she can f/u in office to schedule CCY as outpatient. She would like to think about it but is leaning towards surgery. Will return later today. Keep NPO for now. <DAREK Hill Last Filed: 12/05/23 10:16> Time Spent With Patient Time: Total time managing care of this patient today ____ minutes. <DAREK Hill Last Filed: 12/05/23 10:16> Quality Stroke Does the patient have a stroke diagnosis?: No <DAREK Hill Last Filed: 12/05/23 10:16> VTE Prior VTE?: No <DAREK Hill Last Filed: 12/05/23 10:16> VTE Risk Level:: Medical - moderate - high <DAREK Hill Last Filed: 12/05/23 10:16> VTE Device Contraindication: N/A - Device Ordered <Yamila Holland PA-C - Last Filed: 12/05/23 10:16> VTE Drug Contraindication: Treatment Not Indicated <Yamila Holland PA-C - Last Filed: 12/05/23 10:16>
--- NOTE | 2023-12-05 10:57 | P.CONAN_ITS ---
[facility] Active Problems Active Problems: All Active Problems Recent weight loss (Acute) Biliary sludge (Acute) Acute pancreatitis (Acute) Encounter for annual routine gynecological examination (Acute) Past Medical History Medical History Pyelonephritis Functional capacity: wheelchair bound Family History Family History Brother Heart attack, Onset Age: 42 Family/Other Heart attack, Onset Age: 42 Surgical History Surgical History Hx of wisdom tooth extraction History of Problems with Anesthesia: No Social History Social History Household Members: None Housing: Apartment Alcohol intake: never Patient Tobacco Use Status: Never used Tobacco Smoked in Last 30 Days: No Use of substances other than those prescribed or required for medical reasons: No Are you DNR?: No Advance Directives: No Advance Directives Information Provided: No Do you have a plan to hurt others: No Plan Patient : No Current occupational status: employed 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 Sexual orientation: Straight/Heterosexual Gender identity: Female Meds Allergies Allergy/AdvReac Type Severity Reaction Status Date / Time No Known Allergies Allergy Verified 12/04/23 03:18 Active Medications: Current Medications Acetaminophen (Acetaminophen 325 Mg Tablet) 650 mg PO Q6H PRN PRN Reason: Pain, Mild (Pain Scale 1-3) Sodium Chloride (Ns) 1,000 mls @ 100 mls/hr IVCONT .Q10H ALVAREZ Last Admin: 12/05/23 00:20 Dose: 100 mls/hr Morphine Sulfate (Morphine Sulfate 2 Mg/Ml Cartridge) 2 mg IVPUSH Q4H PRN; Protocol PRN Reason: Pain, Severe (Pain Scale 7-10) Non-Formulary Medication (Norelgestromin-Ethin.Estradiol [Xulane]) 1 patch TRANSDERMA Q30D ALVAREZ Ondansetron HCl (Ondansetron Hcl 4 Mg/2 Ml Vial) 4 mg IVPUSH Q8H PRN PRN Reason: Nausea and Vomiting Last Admin: 12/05/23 00:20 Dose: 4 mg Oxycodone HCl (Oxycodone Hcl Immed Release 5 Mg Tablet) 5 mg PO Q6H PRN PRN Reason: Pain, Moderate(Pain Scale 4-6) Senna (Sennosides 8.6 Mg Tablet) 17.2 mg PO BEDTIME PRN PRN Reason: Constipation Home Medications ?Medication ?Instructions ?Recorded ?Confirmed ?Last Taken ?Type Probiotic 1 cap PO DAILY 12/04/23 12/04/23 Unknown History ibuprofen 200 mg tablet 400 mg PO Q6H PRN Pain 12/04/23 12/04/23 Unknown History norelgestromin 150 mcg-e.estradiol 1 patch transdermal QMONTH 12/04/23 12/04/23 12/02/23 History 35 mcg/24 hr weekly transderm patch (Xulane) Exam Height,Weight and Vital Signs: Height 5 ft 10 in Weight 81.647 kg Last Vital Signs Temp 98.0 F 12/05/23 04:55 Pulse 64 12/05/23 04:55 Resp 19 12/05/23 04:55 BP 109/68 12/05/23 04:55 Pulse Ox 99 12/05/23 04:55 O2 Del Method Room Air 12/05/23 04:55 Pertinent Lab Results Pertinent Lab Results: Laboratory Tests 12/04/23 12/04/23 12/04/23 03:23 05:07 05:44 WBC 7.4 RBC 4.72 Hgb 13.3 Hct 39.7 MCV 84.1 MCH 28.2 MCHC 33.5 RDW 12.7 Plt Count 229 MPV 9.4 Immature Gran % (Auto) 0.4 Neut % (Auto) 47.4 Lymph % (Auto) 43.3 H [place] % (Auto) 6.4 Eos % (Auto) 2.0 Baso % (Auto) 0.5 Lymph # (Auto) 3.2 [place] # (Auto) 0.5 Eos # (Auto) 0.2 Baso # (Auto) 0.0 Abs Immat Gran (auto) 0.03 Absolute Neuts (auto) 3.5 Absolute Nucleated RBC 0.000 Nucleated RBC % (auto) 0.0 Sodium 141 Potassium 3.6 Chloride 106 Carbon Dioxide 23 Anion Gap 16 BUN 14 Creatinine 0.80 Estim Creat Clear Calc 100.0 Estimated GFR > 60 Random Glucose 148 H Calcium 9.4 Total Bilirubin 0.4 Direct Bilirubin 0.2 AST 17 ALT 11 Alkaline Phosphatase 64 Lactate Dehydrogenase 132 Total Protein 7.6 Albumin 4.1 Triglycerides 118 Lipase 443 H 886 H Urine Color Yellow Urine Appearance Clear Urine pH 5.5 Ur Specific [place] 1.025 Urine Protein Negative Urine Glucose (UA) Negative Urine Ketones Trace Urine Blood Negative Urine Nitrite Negative Ur Leukocyte Esterase Trace H Urine RBC 0-2 Urine WBC 0-5 Ur Squamous Epith Cells 0-2 Urine Bacteria None Seen Hyaline Casts 0-2 Urine Test NEGATIVE Ethyl Alcohol < 10 12/04/23 12/05/23 09:59 06:26 WBC 7.2 RBC 3.98 L Hgb 11.2 L Hct 34.7 L MCV 87.2 MCH 28.1 MCHC 32.3 RDW 12.7 Plt Count 166 D MPV 9.4 Immature Gran % (Auto) 0.6 H Neut % (Auto) 57.1 Lymph % (Auto) 32.0 [place] % (Auto) 7.1 Eos % (Auto) 2.6 Baso % (Auto) 0.6 Lymph # (Auto) 2.3 [place] # (Auto) 0.5 Eos # (Auto) 0.2 Baso # (Auto) 0.0 Abs Immat Gran (auto) 0.04 H Absolute Neuts (auto) 4.1 Absolute Nucleated RBC 0.000 Nucleated RBC % (auto) 0.0 Sodium 140 139 Potassium 4.0 4.0 Chloride 109 H 110 H Carbon Dioxide 21 L 21 L Anion Gap 14 12 BUN 12 12 Creatinine 0.74 0.80 Estim Creat Clear Calc 108.1 100.0 Estimated GFR > 60 > 60 Random Glucose 92 67 Calcium 9.1 8.1 L D Total Bilirubin 0.3 Direct Bilirubin AST 14 ALT 12 Alkaline Phosphatase 56 Lactate Dehydrogenase Total Protein 6.6 Albumin 3.5 Triglycerides Lipase 225 H Urine Color Urine Appearance Urine pH Ur Specific [place] Urine Protein Urine Glucose (UA) Urine Ketones Urine Blood Urine Nitrite Ur Leukocyte Esterase Urine RBC Urine WBC Ur Squamous Epith Cells Urine Bacteria Hyaline Casts Urine Test Ethyl Alcohol Airway Mallampati Class: II (braces) TM Dist: >3cm Neck ROM: Full Loose/Missing/Broken Teeth: No Heart: RRR Lungs: CTA Assessment and Plan Assessment Anesthesia Assessment: Anesthesia Plan Discussed and Chart Reviewed Final Anesthetic Review History of Problems with Anesthesia: No ASA Class: II Final Preanesthetic Review: Meds/Allgs Chart Reviewed, Consent Obtained/Reviewed and Anes Risks/Benef Reviewed Patient Risk: Low Procedure Risk: Intermediate Anesthetic Plan Anesthetic Plan: GA Disposition: Standard PACU
--- NOTE | 2023-12-05 13:45 | PC.NURSE ---
Hub was notified that the patient went to the OR.
[2023-12-05] MEDS: HYDROmorphone HCl 0.5 MG/0.5 ML SYRINGE 0.25 MG IVPUSH ×2 (14:00→14:05)
[2023-12-05] MEDS: Lactated Ringers 1,000 ML 80 ML IVCONT (14:18)
--- NOTE | 2023-12-05 14:58 | W.PM.OPN ---
Operative Note Operative Note Date of Service: 12/05/23 Narrative: Preoperative diagnosis: [] Gallstone pancreatitis Postop diagnosis: [] The same Procedure [] laparoscopic cholecystectomy with cholangiogram Surgeon: [] Sai Moisture Machine Tender: [] Skyler Type of Anesthesia: [] General Indication for surgery: [] Intraoperative findings demonstrated on their cholangiogram multiple small stones in the common bile duct with flow entering the duodenal. Omental and gastric adhesions to the gallbladder. Gallbladder also had multiple small stones Findings: [] Patient brought to the operating room, placed on operative table supine position, after adequate level of general anesthesia was induced, the patient's abdomen which was moderately corpulent was prepped and draped in usual sterile fashion. Using a supraumbilical curvilinear incision, Mckeon technique was used to insufflate abdominal cavity to 15 mm of CO2. Upper midline and right subcostal ports were placed under direct laparoscopic view, and the patient placed in reverse Trendelenburg position, tilted to the left. Findings were as noted above. Common bile duct was identified and preserved throughout the procedure. Gallbladder was grasped using laparoscopic graspers, and retracted superiorly and laterally. Omental and gastric adhesions were gently swept off the gallbladder were its hilum was approached. Cystic artery and cystic duct were each identified, circumferentially skeletonized, traced directly into the gallbladder, and critical view obtained. A clip was placed on the cystic duct/Lorena's pouch junction and a choly -cystodochotocotomy performed and a cholangiocatheter advanced into the cystic duct. Cholangiogram findings were as noted above. Cystic duct was then clipped proximally x2 and transected along the cystic artery transected. Gallbladder was then cauterized in the gallbladder fossa using Bovie. Specimen placed in an Endo-Catch bag, a retrieved through the umbilical port. Abdominal cavity was copiously irrigated, secured hemostasis. All ports removed under direct laparoscopic view. Wounds were closed in the following manner; umbilical wound has fascia reapproximated using interrupted 0 Vicryl sutures. Skin wounds were closed using subcuticular 4-0 Vicryl sutures followed by Steri-Strips and sterile dressings. Wounds were infiltrated 0.5% Marcaine at completion. Sponge, needle, and instrument counts reported correct. Patient tolerated the procedure well and emerged from anesthesia stable condition. EBL minimal
--- NOTE | 2023-12-05 16:04 | PM.EVENT ---
Event Note Date of Service: 12/05/23 Event Note: GI pt seen and examined in PACU, consult dictated. ERCP planned for tomorrow. She is aware of risks and benefits and agrees to proceed. Time Spent With Patient Time: Total time managing care of this patient today ____ minutes.
--- NOTE | 2023-12-05 16:05 | MHC.SHP ---
Pre-Procedural Eval Section A - 24 Hr Update-Section A only Date of Service: 12/05/23 The patient is an INPATIENT: Yes Changes since office visit: No Cold of Flu in the past 2 weeks, No New Medical Problems, No Changes in Medication and No Patient answered all questions The patient has been examined within 24 hours of the surgical procedure. The History & Physical has been completed within 30 days and I have reviewed it.: Yes Section B - Complete if H&P > 30 days Chief Complaint: gallstone pancreatitis? Allergies: Allergies Allergy/AdvReac Type Severity Reaction Status Date / Time No Known Allergies Allergy Verified 12/04/23 03:18 Plan I have reviewed the history and physical and performed a pertinent physical examination on my patient. No changes have occurred unless specified. Time Spent With Patient Time: Total time managing care of this patient today ____ minutes.
--- NOTE | 2023-12-05 16:51 | CONS_ITS ---
DATE OF SERVICE: 12/05/2023 REFERRING PHYSICIAN: IRINA Catalan REASON FOR CONSULTATION: Gallstone pancreatitis. HISTORY OF PRESENT ILLNESS: The patient is a pleasant 43-year-old woman, who was admitted to the hospital on December 03 with acute pancreatitis presumed secondary to gallstones. At that time, she had laboratory studies showing elevation of her lipase at 886 with normal liver function tests. Imaging was undertaken with abdominal ultrasound and CT scanning, which showed no acute imaging abnormalities on CT and gallbladder sludge on ultrasound imaging. Her bile duct was 3 mm on ultrasound and no stones were seen. She subsequently underwent laparoscopic cholecystectomy today and intraoperative cholangiography was obtained, which demonstrated multiple small stones in the common bile duct with no obstruction. Multiple small stones were also seen in the gallbladder. The patient is seen in the PACU and reports postsurgical pain, but denies a prior history of pancreatitis before this. PAST MEDICAL HISTORY: Gallstones. She denies other medical or surgical illnesses. CURRENT MEDICATIONS: Her current medication list is reviewed in the chart. ALLERGIES: THERE ARE NONE REPORTED. FAMILY HISTORY: This is reviewed with the patient and is noncontributory. SOCIAL HISTORY: There is no current tobacco, alcohol, or substance abuse. PAST SURGICAL HISTORY: Includes cholecystectomy and wisdom tooth extraction. REVIEW OF SYSTEMS: SKIN: No pruritus. HEENT: Negative. CARDIOPULMONARY: She denies shortness of breath or chest pain. GASTROINTESTINAL: As above. GENITOURINARY: Negative. NEUROPSYCHIATRIC: Negative. PHYSICAL EXAMINATION: GENERAL: Shows a pleasant female, lying comfortably in bed. VITAL SIGNS: Reviewed in electronic medical record and are stable. SKIN: Anicteric. HEENT: Shows no scleral icterus. NECK: Without lymphadenopathy or thyromegaly. LUNGS: Clear. HEART: Shows regular rate and rhythm. S1, S2. No murmur. ABDOMEN: Soft. There are dressings intact and there is some postsurgical tenderness to palpation. Bowel sounds are present. No organomegaly is palpable. EXTREMITIES: Without edema. LABORATORY DATA AND IMAGING STUDIES: Reviewed. IMPRESSION: Common bile duct stones. I have discussed ERCP with the patient including risks and benefits of the procedure as well as the risks of pancreatitis, bleeding, and perforation. She understands these and agrees to proceed. This will be arranged for tomorrow. Thanks for asking me to see her. I will follow her in the hospital with you. MD MUNA Ramirez/BETTY HE: 12/05/2023 16:13:59 / [id number]
[2023-12-05] MEDS: Morphine Sulfate 4 MG/ML CARTRIDGE 3 MG IVPUSH ×2 (16:54→20:48)
[2023-12-06] VITALS (12 sets, daily range): BP systolic 99–133; BP diastolic 49–77; PULSE 57–82; RESP 15–18; TEMP 36.2–37; O2SAT 98–100
[2023-12-06] MEDS: Lactated Ringers 1,000 ML 80 ML IVCONT ×2 (00:39→19:47)
[2023-12-06] MEDS: Morphine Sulfate 4 MG/ML CARTRIDGE 3 MG IVPUSH ×5 (00:40→19:48)
[2023-12-06 06:17] LABS: Prothrombin Time 12.2 SEC (11.1-13.3)
[2023-12-06 06:21] LABS: Alanine Aminotransferase 24 U/L (0-31); Albumin Level 3.3 g/dL (3.5-5.0); Alkaline Phosphatase 57 U/L (39-117); Anion Gap 14 (12-20); Aspartate Amino Transferase 25 U/L (5-31); Bilirubin Direct 0.2 mg/dL (0.0-0.5); Bilirubin Total 0.4 mg/dL (0.0-1.0); Blood Urea Nitrogen 9 mg/dL (9-16); Calcium 8.6 mg/dL (8.4-10.2); Carbon Dioxide 21 mmol/L (22-29); Chloride 106 mmol/L (96-108); Creatinine Clr Calc Pharmacy 118.7; Estimated Glomerular Filt Rate > 60; Glucose Random 96 mg/dL (60-115); Potassium 4.5 mmol/L (3.3-5.1); Sodium 136 mmol/L (135-145); Total Protein 6.6 g/dL (6.5-8.0)
--- NOTE | 2023-12-06 07:57 | PM.PNGS ---
Subjective Subjective Date of Service: 12/06/23 Interval history: Denies epigastric pain this morning, mild incisional pain. Nervous about ERCP today. Physical Exam Vital Signs: Vital Signs: Last Vital Signs Temp 97.1 F 12/06/23 07:26 Pulse 64 12/06/23 07:26 Resp 16 12/06/23 07:26 BP 108/63 12/06/23 07:26 Pulse Ox 99 12/06/23 07:26 O2 Del Method Room Air 12/06/23 07:26 O2 Flow Rate 6 12/05/23 13:50 BMI result Body Mass Index 30.1 Const: General: comfortable, no acute distress and alert Orientation/consciousness: patient oriented x3 Resp: Effort & Inspection: normal respiratory effort GI: Inspection: No distended and Yes incision (dressings c/d/i ) Palpation (GI): Soft to palpation, Tenderness to palpation present (GI) (mild incisional) and no guarding Skin: General skin exam: no rashes or lesions noted and no jaundice Neuro: General: patient oriented x3 Objective Data Active Medications Acetaminophen (Acetaminophen 325 Mg Tablet) 650 mg PO Q6H PRN PRN Reason: Pain, Mild (Pain Scale 1-3) Sodium Chloride (Ns) 1,000 mls @ 100 mls/hr IVCONT .Q10H [facility] Last Admin: 12/06/23 05:02 Dose: Not Given Documented By: LATISHA Non-Admin Reason: IV Running Lactated Ringer's (Lr) 1,000 mls @ 80 mls/hr IVCONT .[id number] [facility] Last Admin: 12/06/23 00:39 Dose: 80 mls/hr Documented By: LATISHA Levofloxacin (Levaquin) 500 mg in 100 mls @ 100 mls/hr IV PREOP ONE Stop: 12/06/23 07:59 Morphine Sulfate (Morphine Sulfate 4 Mg/Ml Cartridge) 3 mg IVPUSH Q3H PRN; Protocol PRN Reason: Pain, Severe (Pain Scale 7-10) Last Admin: 12/06/23 04:31 Dose: 3 mg Documented By: LATISHA Non-Formulary Medication (Norelgestromin-Ethin.Estradiol [Xulane]) 1 patch TRANSDERMA Q30D [facility] Ondansetron HCl (Ondansetron Hcl 4 Mg/2 Ml Vial) 4 mg IVPUSH Q8H PRN PRN Reason: Nausea and Vomiting Last Admin: 12/05/23 16:54 Dose: 4 mg Documented By: SARAH Oxycodone HCl (Oxycodone Hcl Immed Release 5 Mg Tablet) 5 mg PO Q6H PRN PRN Reason: Pain, Moderate(Pain Scale 4-6) Senna (Sennosides 8.6 Mg Tablet) 17.2 mg PO BEDTIME PRN PRN Reason: Constipation Labs 12/05/23 06:26 12/06/23 05:12 Labs: Laboratory Results - last 24 hr 12/06/23 05:12 PT 12.2 INR 1.0 Anion Gap 14 Estim Creat Clear Calc 118.7 Estimated GFR > 60 Random Glucose 96 Calcium 8.6 D Total Bilirubin 0.4 Direct Bilirubin 0.2 AST 25 ALT 24 Alkaline Phosphatase 57 Total Protein 6.6 Albumin 3.3 L Procedures Date of Service Date of Service: 12/06/23 Progress Note: A&P Assessment and plan (1) Acute pancreatitis: Status: Acute (2) S/P laparoscopic cholecystectomy: Status: Acute Plan POD #1 s/p lap george with IOC for gallstone pancreatitis. Intraoperative findings demonstrated multiple small stones in the common bile duct. Doing well post op from surgical standpoint. Abd benign, dressings c/d/i. Plan for ERCP today. Time Spent With Patient Time: Total time managing care of this patient today ____ minutes. Quality Stroke Does the patient have a stroke diagnosis?: No VTE Prior VTE?: No VTE Risk Level:: Medical - moderate - high VTE Device Contraindication: N/A - Device Ordered VTE Drug Contraindication: Treatment Not Indicated
--- NOTE | 2023-12-06 08:53 | HO.PM.IMPN ---
Subjective Subjective Date of Service: 12/06/23 Interval History: Seen in follow-up for gallstone pancreatitis Interval history: S/p lap cholecystectomy with cholangiogram pod 1. Reporting generalized mild abdominal discomfort and bloating. She is passing gas and tolerated diet last night. Currently NPO for ERCP later today. No nausea or vomiting Review of Systems Review of Systems: Yes all other systems are reviewed and are negative Physical Exam Vital Signs: Vital Signs: Last Vital Signs Temp 97.1 F 12/06/23 07:26 Pulse 64 12/06/23 07:26 Resp 16 12/06/23 07:26 BP 108/63 12/06/23 07:26 Pulse Ox 99 12/06/23 07:26 O2 Del Method Room Air 12/06/23 07:26 O2 Flow Rate 6 12/05/23 13:50 BMI result Body Mass Index 30.1 Constitutional - Awake and Alert, No apparent distress Eyes - PERRLA, EOMI Cardiovascular - S1S2, RRR, No edema Respiratory - Normal lung expansion, Normal respiratory effort, No respiratory distress, CTA bilaterally Gastrointestinal - +BS; No rebound or guarding Extremities - no calf tenderness bilaterally, no swelling Skin - Warm/Dry Neurological - Alert & oriented x3 Psychological - Appropriate affect Objective Data Active Medications Acetaminophen (Acetaminophen 325 Mg Tablet) 650 mg PO Q6H PRN PRN Reason: Pain, Mild (Pain Scale 1-3) Sodium Chloride (Ns) 1,000 mls @ 100 mls/hr IVCONT .Q10H [facility] Last Admin: 12/06/23 05:02 Dose: Not Given Documented By: LATISHA Non-Admin Reason: IV Running Lactated Ringer's (Lr) 1,000 mls @ 80 mls/hr IVCONT .[id number] [facility] Last Admin: 12/06/23 00:39 Dose: 80 mls/hr Documented By: LATISHA Morphine Sulfate (Morphine Sulfate 4 Mg/Ml Cartridge) 3 mg IVPUSH Q3H PRN; Protocol PRN Reason: Pain, Severe (Pain Scale 7-10) Last Admin: 12/06/23 07:55 Dose: 3 mg Documented By: OFELIA Non-Formulary Medication (Norelgestromin-Ethin.Estradiol [Xulane]) 1 patch TRANSDERMA Q30D [facility] Ondansetron HCl (Ondansetron Hcl 4 Mg/2 Ml Vial) 4 mg IVPUSH Q8H PRN PRN Reason: Nausea and Vomiting Last Admin: 12/05/23 16:54 Dose: 4 mg Documented By: SARAH Oxycodone HCl (Oxycodone Hcl Immed Release 5 Mg Tablet) 5 mg PO Q6H PRN PRN Reason: Pain, Moderate(Pain Scale 4-6) Senna (Sennosides 8.6 Mg Tablet) 17.2 mg PO BEDTIME PRN PRN Reason: Constipation Labs 12/05/23 06:26 12/06/23 05:12 Labs: Laboratory Results - last 24 hr 12/06/23 05:12 PT 12.2 INR 1.0 Anion Gap 14 Estim Creat Clear Calc 118.7 Estimated GFR > 60 Random Glucose 96 Calcium 8.6 D Total Bilirubin 0.4 Direct Bilirubin 0.2 AST 25 ALT 24 Alkaline Phosphatase 57 Total Protein 6.6 Albumin 3.3 L Assessment and Plan (1) Biliary sludge: Status: Acute (2) Acute pancreatitis: Status: Acute Plan 43 year old female without any significant PMH to be observed for gallstone pancreatitis. #Acute gallstone pancreatitis -Lipase 400 --> 800 --> 225. LFTs wnl. Triglycerides WNL. Ct without evidence of acute intraabdominal abn. US abd shows gallbladder sludge -LFT wnl 12/05 -s/p lap george with cholangiogram 12/04. Per operative report, multiple small stones in the common bile duct with flow entering the duodenum seen -plan for ERCP today. Keep NPO for now, advance diet as tolerated post procedure -Continue ivf -antiemetics prn -pain management prn -general surgery input appreciated. Gastroenterology input appreciated DVT prophylaxis- SCPs, early ambulation full code Pt requires inpatient stay at least 2 midnights for management of acute gallstone pancreatitis s/p lap cholecystectomy with evidence of gallstones in the common bile duct putting patient at risk for recurrent gallstone pancreatitis and will undergo ERCP today with ongoing expert consultation Quality Stroke Does the patient have a stroke diagnosis?: No VTE Prior VTE?: No VTE Risk Level:: Medical - moderate - high VTE Device Contraindication: N/A - Device Ordered VTE Drug Contraindication: Treatment Not Indicated
--- NOTE | 2023-12-06 10:49 | P.CONAN_ITS ---
HPI - Anesthesia Eval Consult details Narrative: 43 yo female patient with common bile duct stones. For ERCP. S/p Laparoscopic Cholecystectomy with intra-op cholangiogram yesterday 12/05/23 [facility] Active Problems Active Problems: All Active Problems S/P laparoscopic cholecystectomy (Acute) Recent weight loss (Acute) Biliary sludge (Acute) Acute pancreatitis (Acute) Encounter for annual routine gynecological examination (Acute) Past Medical History Medical History Pyelonephritis Functional capacity: wheelchair bound Family History Family History Brother Heart attack, Onset Age: 42 Family/Other Heart attack, Onset Age: 42 Surgical History Surgical History (Updated 12/06/23 @ 10:58 by Lexi Chand MD) S/P laparoscopic cholecystectomy Hx of wisdom tooth extraction History of Problems with Anesthesia: No Social History Social History Household Members: None Housing: Apartment Do you presently have visiting nurse or other home services: No Alcohol intake: never Comment: counts correct Patient Tobacco Use Status: Never used Tobacco Smoked in Last 30 Days: No Patient Interested in Nicotine Replacement: No Patient Given Instructions on How to Stop Smoking: No Use of substances other than those prescribed or required for medical reasons: No Currently Displaying Signs/Symptoms of Drug Intoxication Withdrawal: No Any prior treatment program specific to substance use: No Have you been hit, kicked, punched, or otherwise hurt by someone within the past year? 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 Sexual orientation: Straight/Heterosexual Gender identity: Female Meds Allergies Allergy/AdvReac Type Severity Reaction Status Date / Time No Known Allergies Allergy Verified 12/04/23 03:18 Active Medications: Current Medications Acetaminophen (Acetaminophen 325 Mg Tablet) 650 mg PO Q6H PRN PRN Reason: Pain, Mild (Pain Scale 1-3) Sodium Chloride (Ns) 1,000 mls @ 100 mls/hr IVCONT .Q10H [facility] Last Admin: 12/06/23 05:02 Dose: Not Given Lactated Ringer's (Lr) 1,000 mls @ 80 mls/hr IVCONT .[id number] [facility] Last Admin: 12/06/23 00:39 Dose: 80 mls/hr Morphine Sulfate (Morphine Sulfate 4 Mg/Ml Cartridge) 3 mg IVPUSH Q3H PRN; Protocol PRN Reason: Pain, Severe (Pain Scale 7-10) Last Admin: 12/06/23 07:55 Dose: 3 mg Non-Formulary Medication (Norelgestromin-Ethin.Estradiol [Xulane]) 1 patch TRANSDERMA Q30D [facility] Ondansetron HCl (Ondansetron Hcl 4 Mg/2 Ml Vial) 4 mg IVPUSH Q8H PRN PRN Reason: Nausea and Vomiting Last Admin: 12/05/23 16:54 Dose: 4 mg Oxycodone HCl (Oxycodone Hcl Immed Release 5 Mg Tablet) 5 mg PO Q6H PRN PRN Reason: Pain, Moderate(Pain Scale 4-6) Senna (Sennosides 8.6 Mg Tablet) 17.2 mg PO BEDTIME PRN PRN Reason: Constipation Home Medications ?Medication ?Instructions ?Recorded ?Confirmed ?Last Taken ?Type Probiotic 1 cap PO DAILY 12/04/23 12/04/23 Unknown History ibuprofen 200 mg tablet 400 mg PO Q6H PRN Pain 12/04/23 12/04/23 Unknown History norelgestromin 150 mcg-e.estradiol 1 patch transdermal QMONTH 12/04/23 12/04/23 12/02/23 History 35 mcg/24 hr weekly transderm patch (Xulane) Exam Height,Weight and Vital Signs: Height 5 ft 8 in Weight 89.7 kg Last Vital Signs Temp 97.1 F 12/06/23 07:26 Pulse 64 12/06/23 07:26 Resp 16 12/06/23 07:26 BP 108/63 12/06/23 07:26 Pulse Ox 99 12/06/23 07:26 O2 Del Method Room Air 12/06/23 07:26 O2 Flow Rate 6 12/05/23 13:50 Pertinent Lab Results Pertinent Lab Results: Laboratory Tests 12/04/23 12/04/23 12/04/23 03:23 05:07 05:44 WBC 7.4 RBC 4.72 Hgb 13.3 Hct 39.7 MCV 84.1 MCH 28.2 MCHC 33.5 RDW 12.7 Plt Count 229 MPV 9.4 Immature Gran % (Auto) 0.4 Neut % (Auto) 47.4 Lymph % (Auto) 43.3 H [place] % (Auto) 6.4 Eos % (Auto) 2.0 Baso % (Auto) 0.5 Lymph # (Auto) 3.2 [place] # (Auto) 0.5 Eos # (Auto) 0.2 Baso # (Auto) 0.0 Abs Immat Gran (auto) 0.03 Absolute Neuts (auto) 3.5 Absolute Nucleated RBC 0.000 Nucleated RBC % (auto) 0.0 PT INR Sodium 141 Potassium 3.6 Chloride 106 Carbon Dioxide 23 Anion Gap 16 BUN 14 Creatinine 0.80 Estim Creat Clear Calc 100.0 Estimated GFR > 60 Random Glucose 148 H Calcium 9.4 Total Bilirubin 0.4 Direct Bilirubin 0.2 AST 17 ALT 11 Alkaline Phosphatase 64 Lactate Dehydrogenase 132 Total Protein 7.6 Albumin 4.1 Triglycerides 118 Lipase 443 H 886 H Urine Color Yellow Urine Appearance Clear Urine pH 5.5 Ur Specific [place] 1.025 Urine Protein Negative Urine Glucose (UA) Negative Urine Ketones Trace Urine Blood Negative Urine Nitrite Negative Ur Leukocyte Esterase Trace H Urine RBC 0-2 Urine WBC 0-5 Ur Squamous Epith Cells 0-2 Urine Bacteria None Seen Hyaline Casts 0-2 Urine Test NEGATIVE Ethyl Alcohol < 10 12/04/23 12/05/23 12/06/23 09:59 06:26 05:12 WBC 7.2 RBC 3.98 L Hgb 11.2 L Hct 34.7 L MCV 87.2 MCH 28.1 MCHC 32.3 RDW 12.7 Plt Count 166 D MPV 9.4 Immature Gran % (Auto) 0.6 H Neut % (Auto) 57.1 Lymph % (Auto) 32.0 [place] % (Auto) 7.1 Eos % (Auto) 2.6 Baso % (Auto) 0.6 Lymph # (Auto) 2.3 [place] # (Auto) 0.5 Eos # (Auto) 0.2 Baso # (Auto) 0.0 Abs Immat Gran (auto) 0.04 H Absolute Neuts (auto) 4.1 Absolute Nucleated RBC 0.000 Nucleated RBC % (auto) 0.0 PT 12.2 INR 1.0 Sodium 140 139 136 Potassium 4.0 4.0 4.5 Chloride 109 H 110 H 106 Carbon Dioxide 21 L 21 L 21 L Anion Gap 14 12 14 BUN 12 12 9 Creatinine 0.74 0.80 0.73 Estim Creat Clear Calc 108.1 100.0 118.7 Estimated GFR > 60 > 60 > 60 Random Glucose 92 67 96 Calcium 9.1 8.1 L D 8.6 D Total Bilirubin 0.3 0.4 Direct Bilirubin 0.2 AST 14 25 ALT 12 24 Alkaline Phosphatase 56 57 Lactate Dehydrogenase Total Protein 6.6 6.6 Albumin 3.5 3.3 L Triglycerides Lipase 225 H Urine Color Urine Appearance Urine pH Ur Specific [place] Urine Protein Urine Glucose (UA) Urine Ketones Urine Blood Urine Nitrite Ur Leukocyte Esterase Urine RBC Urine WBC Ur Squamous Epith Cells Urine Bacteria Hyaline Casts Urine Test Ethyl Alcohol Assessment and Plan Final Anesthetic Review History of Problems with Anesthesia: No
--- NOTE | 2023-12-06 11:19 | PM.EVENT ---
Event Note Date of Service: 12/06/23 Event Note: GI Cholangiogram reviewed Discussed with Dr. Gibbs Multiple cbd stones seen at surgery on fluoroscopy. ERCP later today as planned. Time Spent With Patient Time: Total time managing care of this patient today ____ minutes.
--- NOTE | 2023-12-06 12:10 | MHC.CM.PN ---
pt lives alone is independent has a ride home dc home no antonias
--- NOTE | 2023-12-06 14:06 | HO.POSTANES ---
Post Anesthesia Evaluation Post Anesthesia Evaluation Date of Service: 12/05/23 Vital Signs: Vital Signs Temp Pulse Resp BP Pulse Ox O2 Del Method 12/06/23 13:53 18 12/06/23 11:16 97.4 F 57 16 112/63 100 Room Air 12/06/23 07:26 97.1 F 64 16 108/63 99 Room Air 12/06/23 03:19 98.2 F 60 16 100/57 L 98 Room Air Anesthesia: General Mental Status: Awake Pain Control: Satisfactory Nausea/Vomiting: None Hydration: Adequate Anesthesia-Related Issues: No Anes. Related Issues
--- NOTE | 2023-12-06 14:34 | P.CONAN_ITS ---
HPI - Anesthesia Eval Consult details Narrative: for ERCP PMFSH Active Problems Active Problems: All Active Problems Recent weight loss (Acute) Biliary sludge (Acute) Acute pancreatitis (Acute) Encounter for annual routine gynecological examination (Acute) Past Medical History Medical History Pyelonephritis Functional capacity: wheelchair bound Patient : No Family History Family History Brother Heart attack, Onset Age: 42 Family/Other Heart attack, Onset Age: 42 Family history of problems with anesthesia: No Surgical History Surgical History (Updated 12/06/23 @ 10:58 by Lexi Chand MD) S/P laparoscopic cholecystectomy Hx of wisdom tooth extraction History of Problems with Anesthesia: No Social History Social History Household Members: None Housing: Apartment Do you presently have visiting nurse or other home services: No Alcohol intake: never Comment: counts correct Patient Tobacco Use Status: Never used Tobacco Smoked in Last 30 Days: No Patient Interested in Nicotine Replacement: No Patient Given Instructions on How to Stop Smoking: No Use of substances other than those prescribed or required for medical reasons: No Currently Displaying Signs/Symptoms of Drug Intoxication Withdrawal: No Any prior treatment program specific to substance use: No Have you been hit, kicked, punched, or otherwise hurt by someone within the past year? 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 Sexual orientation: Straight/Heterosexual Gender identity: Female Meds Allergies Allergy/AdvReac Type Severity Reaction Status Date / Time No Known Allergies Allergy Verified 12/04/23 03:18 Active Medications: Current Medications Acetaminophen (Acetaminophen 325 Mg Tablet) 650 mg PO Q6H PRN PRN Reason: Pain, Mild (Pain Scale 1-3) Sodium Chloride (Ns) 1,000 mls @ 100 mls/hr IVCONT .Q10H [facility] Last Admin: 12/06/23 05:02 Dose: Not Given Lactated Ringer's (Lr) 1,000 mls @ 80 mls/hr IVCONT .[id number] [facility] Last Admin: 12/06/23 00:39 Dose: 80 mls/hr Morphine Sulfate (Morphine Sulfate 4 Mg/Ml Cartridge) 3 mg IVPUSH Q3H PRN; Protocol PRN Reason: Pain, Severe (Pain Scale 7-10) Last Admin: 12/06/23 13:53 Dose: 3 mg Non-Formulary Medication (Norelgestromin-Ethin.Estradiol [Xulane]) 1 patch TRANSDERMA Q30D [facility] Ondansetron HCl (Ondansetron Hcl 4 Mg/2 Ml Vial) 4 mg IVPUSH Q8H PRN PRN Reason: Nausea and Vomiting Last Admin: 12/05/23 16:54 Dose: 4 mg Oxycodone HCl (Oxycodone Hcl Immed Release 5 Mg Tablet) 5 mg PO Q6H PRN PRN Reason: Pain, Moderate(Pain Scale 4-6) Senna (Sennosides 8.6 Mg Tablet) 17.2 mg PO BEDTIME PRN PRN Reason: Constipation Home Medications ?Medication ?Instructions ?Recorded ?Confirmed ?Last Taken ?Type Probiotic 1 cap PO DAILY 12/04/23 12/04/23 Unknown History ibuprofen 200 mg tablet 400 mg PO Q6H PRN Pain 12/04/23 12/04/23 Unknown History norelgestromin 150 mcg-e.estradiol 1 patch transdermal QMONTH 12/04/23 12/04/23 12/02/23 History 35 mcg/24 hr weekly transderm patch (Xulane) Exam Height,Weight and Vital Signs: Height 5 ft 8 in Weight 89.7 kg Last Vital Signs Temp 97.4 F 12/06/23 11:16 Pulse 66 12/06/23 14:20 Resp 16 12/06/23 14:20 BP 103/64 12/06/23 14:20 Pulse Ox 100 12/06/23 11:16 O2 Del Method Room Air 12/06/23 11:16 O2 Flow Rate 6 12/05/23 13:50 Pertinent Lab Results Pertinent Lab Results: Laboratory Tests 12/04/23 12/04/23 12/04/23 03:23 05:07 05:44 WBC 7.4 RBC 4.72 Hgb 13.3 Hct 39.7 MCV 84.1 MCH 28.2 MCHC 33.5 RDW 12.7 Plt Count 229 MPV 9.4 Immature Gran % (Auto) 0.4 Neut % (Auto) 47.4 Lymph % (Auto) 43.3 H [place] % (Auto) 6.4 Eos % (Auto) 2.0 Baso % (Auto) 0.5 Lymph # (Auto) 3.2 [place] # (Auto) 0.5 Eos # (Auto) 0.2 Baso # (Auto) 0.0 Abs Immat Gran (auto) 0.03 Absolute Neuts (auto) 3.5 Absolute Nucleated RBC 0.000 Nucleated RBC % (auto) 0.0 PT INR Sodium 141 Potassium 3.6 Chloride 106 Carbon Dioxide 23 Anion Gap 16 BUN 14 Creatinine 0.80 Estim Creat Clear Calc 100.0 Estimated GFR > 60 Random Glucose 148 H Calcium 9.4 Total Bilirubin 0.4 Direct Bilirubin 0.2 AST 17 ALT 11 Alkaline Phosphatase 64 Lactate Dehydrogenase 132 Total Protein 7.6 Albumin 4.1 Triglycerides 118 Lipase 443 H 886 H Urine Color Yellow Urine Appearance Clear Urine pH 5.5 Ur Specific [place] 1.025 Urine Protein Negative Urine Glucose (UA) Negative Urine Ketones Trace Urine Blood Negative Urine Nitrite Negative Ur Leukocyte Esterase Trace H Urine RBC 0-2 Urine WBC 0-5 Ur Squamous Epith Cells 0-2 Urine Bacteria None Seen Hyaline Casts 0-2 Urine Test NEGATIVE Ethyl Alcohol < 10 12/04/23 12/05/23 12/06/23 09:59 06:26 05:12 WBC 7.2 RBC 3.98 L Hgb 11.2 L Hct 34.7 L MCV 87.2 MCH 28.1 MCHC 32.3 RDW 12.7 Plt Count 166 D MPV 9.4 Immature Gran % (Auto) 0.6 H Neut % (Auto) 57.1 Lymph % (Auto) 32.0 [place] % (Auto) 7.1 Eos % (Auto) 2.6 Baso % (Auto) 0.6 Lymph # (Auto) 2.3 [place] # (Auto) 0.5 Eos # (Auto) 0.2 Baso # (Auto) 0.0 Abs Immat Gran (auto) 0.04 H Absolute Neuts (auto) 4.1 Absolute Nucleated RBC 0.000 Nucleated RBC % (auto) 0.0 PT 12.2 INR 1.0 Sodium 140 139 136 Potassium 4.0 4.0 4.5 Chloride 109 H 110 H 106 Carbon Dioxide 21 L 21 L 21 L Anion Gap 14 12 14 BUN 12 12 9 Creatinine 0.74 0.80 0.73 Estim Creat Clear Calc 108.1 100.0 118.7 Estimated GFR > 60 > 60 > 60 Random Glucose 92 67 96 Calcium 9.1 8.1 L D 8.6 D Total Bilirubin 0.3 0.4 Direct Bilirubin 0.2 AST 14 25 ALT 12 24 Alkaline Phosphatase 56 57 Lactate Dehydrogenase Total Protein 6.6 6.6 Albumin 3.5 3.3 L Triglycerides Lipase 225 H Urine Color Urine Appearance Urine pH Ur Specific [place] Urine Protein Urine Glucose (UA) Urine Ketones Urine Blood Urine Nitrite Ur Leukocyte Esterase Urine RBC Urine WBC Ur Squamous Epith Cells Urine Bacteria Hyaline Casts Urine Test Ethyl Alcohol Airway Mallampati Class: II TM Dist: <=3cm Neck ROM: Full Loose/Missing/Broken Teeth: No Heart: ok Lungs: ok Other: Braces; small mouth Assessment and Plan Assessment Anesthesia Assessment: Anesthesia Plan Discussed and Chart Reviewed Final Anesthetic Review Family History of Problems with Anesthesia: No History of Problems with Anesthesia: No NPO: Yes ASA Class: II Final Preanesthetic Review: No Changes in Pt Med Stat, Meds/Allgs Chart Reviewed, Consent Obtained/Reviewed and Anes Risks/Benef Reviewed Patient Risk: Intermediate Procedure Risk: Intermediate Anesthetic Plan Anesthetic Plan: GA and Agree w/ Assess. and Plan Disposition: Standard PACU
[2023-12-06] MEDS: Midazolam HCl/PF 2 MG/2 ML VIAL 1 MG IVPUSH (14:53)
--- NOTE | 2023-12-06 18:06 | PM.OP ---
Brief Operative Note Date of Service: 12/06/23 Pre-op diagnosis: Choledocholithiasis Post-op diagnosis: other (Biliary sludge) Procedure: ERCP with sphincterotomy and removal of biliary sludge Surgeon: Augustin Narvaez MD Anesthesia: GETA (Glucagon 0.5mg IV x 2) Was an Electrical Timing Device Calibrator used for this Procedure?: No Estimated blood loss (mL): 0 Pathology: none sent Condition: stable Disposition: PACU
--- NOTE | 2023-12-06 18:08 | PM.EVENT ---
Event Note Date of Service: 12/06/23 Event Note: ERCP-Full note dictated Findings: 1. Normal major papilla 2. Normal appearing extrahepatic bile duct other than questionable very small filling defects in the very distal CBD 3. Normal intrahepatic bile ducts 4. No sign of extravasation of contrast 5. Performed an approx. 8mm sphincterotomy with good drainage of bile and dye 6. Duct swept with a 9-12mm balloon with removal of small amounts of sludge-type material; there were no discrete stones nor stone fragments 7. F/U cholangiograms appeared normal and with good drainage; 12mm balloon pulled easily into duodenum 8. Pancreatic duct cannulated twice with the guidewire but no dye was injected. Plan: Observe overnight, advance diet in AM if stable, F/U labs in AM. Avoid ASA,NSAIDs, and all blood thinners x 1 week. D/W patient. Thanks Time Spent With Patient Time: Total time managing care of this patient today ____ minutes.
[2023-12-06] MEDS: ondansetron HCL 4 MG/2 ML VIAL IVPUSH ×2 (18:30→19:48)
--- NOTE | 2023-12-06 21:29 | MHC.PIE ---
p; pt c/o n/v. note; prn jennifer given 1945 i; dr bustillo notified. new order reglan once e; will cont to monitor
[2023-12-06] MEDS: Metoclopramide HCl 10 MG/2 ML VIAL 5 MG IVPUSH (21:31)
[2023-12-07] MEDS: Morphine Sulfate 4 MG/ML CARTRIDGE 3 MG IVPUSH ×3 (01:07→10:29)
--- NOTE | 2023-12-07 02:00 | OP_ITS ---
DATE OF SERVICE: 12/06/2023 SURGEON: Augustin Narvaez MD INDICATIONS: The patient presents for evaluation of a question of choledocholithiasis. Full consent was obtained from her for this, including risks of bleeding, perforation, cholangitis, and pancreatitis. PREOPERATIVE DIAGNOSIS: Question of choledocholithiasis. POSTOPERATIVE DIAGNOSIS: PROCEDURE PERFORMED: Endoscopic retrograde cholangio-pancreatography with sphincterotomy and removal of biliary sludge. ESTIMATED BLOOD LOSS: COMPLICATIONS: ANESTHESIA: Medications used, general anesthesia and glucagon 0.5 mg IV x2 doses. ASSISTANTS: SPECIMENS: POSTOPERATIVE DIAGNOSES: Question of choledocholithiasis, minimal biliary sludge. DESCRIPTION OF PROCEDURE: The patient was placed in the semiprone position. The Simplify video duodenum scope was passed in the posterior oropharynx and upper esophagus. The scope entered the stomach and was advanced to the pylorus. The duodenum was cannulated to the descending portion. The region of the major papilla revealed a normal-appearing papilla without any sign of mass or ulceration. Initial cannulation of the major papilla with a straight guidewire with the [employer] triple lumen sphincterotome yielded entry into the pancreatic duct on 2 occasions judging fluoroscopically. There was no injection of dye. I was then able to achieve a selective cannulation of the biliary tree over the guidewire. Selective cholangiograms at that point revealed a normal appearing intrahepatic biliary ductal system. There was no dilatation. The extrahepatic bile duct also was not dilated, but the very distal portion did have some tiny areas of possible filling defects. Based on the clinical history, I did perform an approximately 8 mm sphincterotomy over the guidewire without any immediate complication. There was good drainage of bile and dye noted at that time. I then used a 9 to 12 mm balloon catheter to sweep the duct and tiny bits of sludge material were seen coming out of the bile duct, but no stones or stone fragments. The balloon pulled into the duodenum easily in the 12 mm inflated position. Followup cholangiograms did not reveal any sign of other filling defects and again there was good drainage of bile and dye noted with deflation of the balloon and removal of the balloon catheter. No further filling defects were noted with contrast injection. At that point, the procedure was terminated. She tolerated the procedure well and was returned to recovery area in stable condition. IMPRESSION: Minimal biliary sludge in extrahepatic bile duct, status post sphincterotomy. PLAN: The patient will be observed overnight. If stable her diet will be advanced and she could be discharged later tomorrow if things remain stable. She will have followup laboratories in the morning as well. Instructions have been written that she should not receive any aspirin, NSAIDs, nor any other blood thinner for 1 week. MD KEELY Quinn/BETTY / [phone]
[2023-12-07 03:28] VITALS: BP 99/55; PULSE 55; RESP 16; TEMP 36.6; O2SAT 95
[2023-12-07 05:50] LABS: Basophils Percent Auto 0.5 % (0-2); Eosinophils Percent Auto 0.3 % (0-4); Hematocrit 33.8 % (37.0-47.0); Hemoglobin 11.3 g/dl (12.0-16.0); Imm Gran Abs Auto 0.03 X10*3/uL (0.00-0.03); Imm Gran Pct Auto 0.3 % (0.0-0.4); Lymphocytes Absolute Auto 1.5 X10*3/uL (1.2-4.9); Lymphocytes Percent Auto 17.6 % (20-40); MANUAL DIFF FLAG NO; Mean Corpuscular HGB Conc 33.4 g/dl (31.0-35.0); Mean Corpuscular Hemoglobin 28.4 pg (27.0-33.0); Mean Corpuscular Volume 84.9 fL (80.0-98.0); Mean Platelet Volume 10.1 fL (9.4-12.3); Monocytes Absolute Auto 0.6 X10*3/uL (0.1-1.2); Monocytes Percent Auto 6.9 % (2-11); Neutrophils Absolute Auto 6.4 x10*3/uL (2.0-8.3); Neutrophils Percent Auto 74.4 % (45-73); Platelet Count 168 X10*3/uL (160-400); Red Blood Count 3.98 X10*6/uL (4.20-5.50); Red Cell Distribution Width 12.7 % (11.0-16.0); White Blood Count 8.6 X10*3/uL (4.8-10.8)
[2023-12-07 06:24] LABS: Alanine Aminotransferase 25 U/L (0-31); Albumin Level 3.2 g/dL (3.5-5.0); Alkaline Phosphatase 58 U/L (39-117); Anion Gap 14 (12-20); Aspartate Amino Transferase 20 U/L (5-31); Bilirubin Direct 0.2 mg/dL (0.0-0.5); Bilirubin Total 0.4 mg/dL (0.0-1.0); Blood Urea Nitrogen 10 mg/dL (9-16); Calcium 8.4 mg/dL (8.4-10.2); Carbon Dioxide 20 mmol/L (22-29); Chloride 106 mmol/L (96-108); Creatinine Clr Calc Pharmacy 122.1; Estimated Glomerular Filt Rate > 60; Glucose Fasting 88 mg/dL (60-99); Potassium 4.1 mmol/L (3.3-5.1); Sodium 136 mmol/L (135-145)
[2023-12-07 07:08] VITALS: BP 107/61; PULSE 64; RESP 18; TEMP 36.6; O2SAT 98
[2023-12-07] MEDS: ondansetron HCL 4 MG/2 ML VIAL IVPUSH ×2 (08:29→17:34)
--- NOTE | 2023-12-07 09:18 | PM.PNGS ---
Subjective Subjective Date of Service: 12/07/23 Interval history: Tearful, very sore this morning. Vomitted all night following ERCP. Still with some nausea and pain this morning. Feels very weak. Physical Exam Vital Signs: Vital Signs: Last Vital Signs Temp 97.8 F 12/07/23 07:08 Pulse 64 12/07/23 07:08 Resp 18 12/07/23 07:08 BP 107/61 12/07/23 07:08 Pulse Ox 98 12/07/23 07:08 O2 Del Method Room Air 12/07/23 07:08 O2 Flow Rate 6 12/05/23 13:50 BMI result Body Mass Index 30.1 Const: General: comfortable, no acute distress and alert Orientation/consciousness: patient oriented x3 GI: Inspection: Yes incision (clean) Palpation (GI): Soft to palpation, Tenderness to palpation present (GI) (mild incisional) and no guarding Skin: General skin exam: no rashes or lesions noted and no jaundice Neuro: General: patient oriented x3 Objective Data Active Medications Acetaminophen (Acetaminophen 325 Mg Tablet) 650 mg PO Q6H PRN PRN Reason: Pain, Mild (Pain Scale 1-3) Morphine Sulfate (Morphine Sulfate 4 Mg/Ml Cartridge) 3 mg IVPUSH Q3H PRN; Protocol PRN Reason: Pain, Severe (Pain Scale 7-10) Last Admin: 12/07/23 06:33 Dose: 3 mg Documented By: LATISHA Non-Formulary Medication (Norelgestromin-Ethin.Estradiol [Xulane]) 1 patch TRANSDERMA Q30D [facility] Ondansetron HCl (Ondansetron Hcl 4 Mg/2 Ml Vial) 4 mg IVPUSH Q6H PRN PRN Reason: Nausea and Vomiting Last Admin: 12/07/23 08:29 Dose: 4 mg Documented By: VICKY Oxycodone HCl (Oxycodone Hcl Immed Release 5 Mg Tablet) 5 mg PO Q6H PRN PRN Reason: Pain, Moderate(Pain Scale 4-6) Senna (Sennosides 8.6 Mg Tablet) 17.2 mg PO BEDTIME PRN PRN Reason: Constipation Labs 12/07/23 05:11 12/07/23 05:11 Labs: Laboratory Results - last 24 hr 12/07/23 05:11 MCV 84.9 MCH 28.4 MCHC 33.4 RDW 12.7 Plt Count 168 MPV 10.1 Immature Gran % (Auto) 0.3 Neut % (Auto) 74.4 H Lymph % (Auto) 17.6 L [place] % (Auto) 6.9 Eos % (Auto) 0.3 Baso % (Auto) 0.5 Lymph # (Auto) 1.5 [place] # (Auto) 0.6 Eos # (Auto) 0.0 Baso # (Auto) 0.0 Abs Immat Gran (auto) 0.03 Absolute Neuts (auto) 6.4 Absolute Nucleated RBC 0.000 Nucleated RBC % (auto) 0.0 Anion Gap 14 Estim Creat Clear Calc 122.1 Estimated GFR > 60 Fasting Glucose 88 Calcium 8.4 Total Bilirubin 0.4 Direct Bilirubin 0.2 AST 20 ALT 25 Alkaline Phosphatase 58 Total Protein 6.0 L Albumin 3.2 L Procedures Date of Service Date of Service: 12/07/23 Progress Note: A&P Assessment and plan (1) Acute pancreatitis: Status: Acute Plan POD #2 s/p lap george, ERCP yesterday. Abd remains benign, mild incisional tenderness, incisions clean. Diet as tolerated. Increase activity. Home when tolerating diet, pain controlled. Time Spent With Patient Time: Total time managing care of this patient today ____ minutes. Quality Stroke Does the patient have a stroke diagnosis?: No VTE Prior VTE?: No VTE Risk Level:: Medical - moderate - high VTE Device Contraindication: N/A - Device Ordered VTE Drug Contraindication: Treatment Not Indicated
[2023-12-07] MEDS: polyethylene glycoL 3350 17 GM POWD.PACK PO (10:38)
[2023-12-07] MEDS: Sennosides 8.6 MG TABLET 17.2 MG PO ×2 (10:39→21:57)
--- NOTE | 2023-12-07 11:42 | MHC.CM.PN ---
EMR REVIEWED, PLAN FOR ADVANCING DIET AND IF TOLERATED PT WILL DC LATER TODAY, HOME NO SERVICES AND PT WILL ARRANGE TRANSPORT.
[2023-12-07 12:00] VITALS: BP 112/63; PULSE 64; RESP 16; TEMP 36.4; O2SAT 94
--- NOTE | 2023-12-07 14:18 | HO.POSTANES ---
Post Anesthesia Evaluation Post Anesthesia Evaluation Date of Service: 12/06/23 Vital Signs: Vital Signs Temp Pulse Resp BP Pulse Ox O2 Del Method 12/07/23 12:00 97.5 F 64 16 112/63 94 Room Air 12/07/23 07:08 97.8 F 64 18 107/61 98 Room Air 12/07/23 03:28 98 F 55 16 99/55 L 95 Room Air Anesthesia: General Mental Status: Awake Pain Control: Satisfactory Hydration: Adequate Anesthesia-Related Issues: No Anes. Related Issues
[2023-12-07 15:00] VITALS: BP 123/60; PULSE 80; RESP 16; TEMP 36.4; O2SAT 96
--- NOTE | 2023-12-07 15:06 | HO.PM.IMPN ---
Subjective Subjective Date of Service: 12/07/23 Interval History: Complaining of nausea, unable to take solids, good pain control ambulating with no lightheadedness or dizziness. Review of Systems All other system reviewed and negative. Physical Exam Vital Signs: Vital Signs: Last Vital Signs Temp 97.5 F 12/07/23 12:00 Pulse 64 12/07/23 12:00 Resp 16 12/07/23 12:00 BP 112/63 12/07/23 12:00 Pulse Ox 94 12/07/23 12:00 O2 Del Method Room Air 12/07/23 12:00 O2 Flow Rate 6 12/05/23 13:50 BMI result Body Mass Index 30.1 Const: Other: General awake alert x3, in no acute distress. Anicteric sclera Neck supple no JVD. CVS regular rate rhythm, Respiratory lungs clear to auscultation, no respiratory distress, no wheeze, no rhonchi. Gastrointestinal abdomen soft, tender to palpation at incision, no guarding, no rigidity, bowel sounds audible. Extremities no edema. Neuro non focal Skin no rash Psych appropriate affect Objective Data Active Medications Acetaminophen (Acetaminophen 325 Mg Tablet) 650 mg PO Q6H PRN PRN Reason: Pain, Mild (Pain Scale 1-3) Non-Formulary Medication (Norelgestromin-Ethin.Estradiol [Xulane]) 1 patch TRANSDERMA Q30D [facility] Ondansetron HCl (Ondansetron Hcl 4 Mg/2 Ml Vial) 4 mg IVPUSH Q6H PRN PRN Reason: Nausea and Vomiting Last Admin: 12/07/23 08:29 Dose: 4 mg Documented By: VICKY Oxycodone HCl (Oxycodone Hcl Immed Release 5 Mg Tablet) 5 mg PO Q6H PRN PRN Reason: Pain, Moderate(Pain Scale 4-6) Polyethylene Glycol (Polyethylene Glycol 3350 17 Gm Powd.Pack) 17 gm PO DAILY [facility] Last Admin: 12/07/23 10:38 Dose: 17 gm Documented By: VICKY Senna (Sennosides 8.6 Mg Tablet) 17.2 mg PO BID [facility] Last Admin: 12/07/23 10:39 Dose: 17.2 mg Documented By: VICKY Labs 12/07/23 05:11 12/07/23 05:11 Labs: Laboratory Results - last 24 hr 12/07/23 05:11 MCV 84.9 MCH 28.4 MCHC 33.4 RDW 12.7 Plt Count 168 MPV 10.1 Immature Gran % (Auto) 0.3 Neut % (Auto) 74.4 H Lymph % (Auto) 17.6 L [place] % (Auto) 6.9 Eos % (Auto) 0.3 Baso % (Auto) 0.5 Lymph # (Auto) 1.5 [place] # (Auto) 0.6 Eos # (Auto) 0.0 Baso # (Auto) 0.0 Abs Immat Gran (auto) 0.03 Absolute Neuts (auto) 6.4 Absolute Nucleated RBC 0.000 Nucleated RBC % (auto) 0.0 Anion Gap 14 Estim Creat Clear Calc 122.1 Estimated GFR > 60 Fasting Glucose 88 Calcium 8.4 Total Bilirubin 0.4 Direct Bilirubin 0.2 AST 20 ALT 25 Alkaline Phosphatase 58 Total Protein 6.0 L Albumin 3.2 L Assessment and Plan (1) Biliary sludge: Status: Acute (2) Acute pancreatitis: Status: Acute Plan 43 year old female without any significant PMH to be observed for gallstone pancreatitis. #Acute gallstone pancreatitis -complaining of nausea , unable to tolerate diet -Lipase 400 --> 800 --> 225. LFTs wnl. Triglycerides WNL. Ct without evidence of acute intraabdominal abn. US abd shows gallbladder sludge -LFT wnl -s/p lap george with cholangiogram 12/04. Per operative report, multiple small stones in the common bile duct with flow entering the duodenum seen -s/p ERCP 12/05 noted to have multiple small stones in common bile duct, underwent a sphincterotomy with good drainage of bile and with removal of sludge type material no discrete stones were noted follow-up cholangiogram was normal with good drainage. -placed on solid diet, continue antiemetics prn, DC IV fluids -pain management with oxycodone po prn, encourage ambulation -recommend to avoid blood thinners x1 week DVT prophylaxis- SCPs, early ambulation full code Pt requires inpatient stay due to inability to tolerate diet status post ERCP and cholecystectomy will monitor closely for tolerance of diet. Quality Stroke Does the patient have a stroke diagnosis?: No VTE Prior VTE?: No VTE Risk Level:: Medical - moderate - high VTE Device Contraindication: N/A - Device Ordered VTE Drug Contraindication: Treatment Not Indicated
[2023-12-07] MEDS: Acetaminophen 325 MG TABLET 650 MG PO ×2 (15:42→21:57)
--- NOTE | 2023-12-07 15:44 | MHC.CM.PN ---
Addendum entered by Lianet Feliciano RN 12/07/23 16:15: cm received call back from [facility] nurse who reports Dr Araseli Fall can see pt for hospital follow-up/new pt appt December 13 at 1pm, pt aware and appt added to DCP. Original Note: cm met w/pt to determine if she is active with a pcp, pt reports she had a pcp at [facility] who left practice and has not been since precovid, pt agreeable to new pt appt, cm contacted [facility] and they reported they would have a nurse call cm back to schedule a new pt pcp appt.
[2023-12-07] MEDS: Magnesium Hydrox/Alum Hydrox 30 ML ORAL.SUSP PO (16:14)
[2023-12-07] MEDS: Omeprazole 20 MG CAPSULE.DR PO (16:14)
[2023-12-07] MEDS: oxyCODONE HCl Immed Release 5 MG TABLET PO ×2 (17:34→23:45)
[2023-12-07 19:50] VITALS: BP 111/65; PULSE 72; RESP 20; TEMP 36.2; O2SAT 94
[2023-12-08] VITALS: BP 114/68; PULSE 75; RESP 20; TEMP 36.3; O2SAT 92
[2023-12-08] MEDS: ondansetron HCL 4 MG/2 ML VIAL IVPUSH ×2 (00:02→08:51)
[2023-12-08 03:37] VITALS: BP 114/69; PULSE 67; RESP 20; TEMP 36.3; O2SAT 97
[2023-12-08] MEDS: Omeprazole 20 MG CAPSULE.DR PO (06:23)
[2023-12-08 06:42] VITALS: BP 110/64; PULSE 65; RESP 16; TEMP 36.6; O2SAT 98
[2023-12-08] MEDS: oxyCODONE HCl Immed Release 5 MG TABLET PO (08:51)
[2023-12-08] MEDS: Sennosides 8.6 MG TABLET 17.2 MG PO (08:51)
[2023-12-08] MEDS: polyethylene glycoL 3350 17 GM POWD.PACK PO (08:51)
--- NOTE | 2023-12-08 09:44 | P.DS_ITS ---
DS: Providers Provider Date of Service: 12/08/23 Date of admission: 12/05/23 13:04 Primary care physician: Unknown Physician Consults: 12/04/23 12:48 Consult to General Surgery Routine [place]ing [place] [facility] [place] [facility] Reason for consultation: New onset pancreatitis Has provider been notified: Yes 12/05/23 07:37 Consult to Gastroenterology Routine Consulting Provider: Matt Eric Reason for consultation: gallstone pancreatitis DS: Diagnosis Discharge Diagnosis (1) Biliary sludge: Status: Acute (2) Acute pancreatitis: Status: Acute DS: Summary Hospital Course Hospital Course: History of presenting illness: Date of Service: 12/04/23 Attending physician on admission: T[facility] Chief Complaint: abd pain 43 year old female without any significnat PMH presented to the ed earlier today for evaluation of abdominal pain. Report she woke abruptly around 1 am with severe diffuse abdominal pain without any associated fevers, chills, nausea, vomiting, diarrhea, melena, hematochezia. She does report diaphoresis. No sob, lightheadedness, chest pain. No history of prior pain. She tells me for the last 5 months has been working on weight loss and has lost 25 pounds through health diet lower in fat/carbs/calories and increased exercise with weight training. She very rarely consumes alcohol, last drink was 1 aaron on sunday. No drugs or cigarettes. On arrival, VSS. Hematology studies unremarkable. Renal function and electrolyte levels normal. Initial lipase was 443 which was repeated 2 hours later and elevated at 886. CT abdomen/pelvis was negative for any acute intra-abdominal abnormality including acute pancreatitis and pain did ultimately improve. Lipase was again repeated and had decreased to 225. Triglyceride levels normal at 116. LFTs WNL. Ultrasound of the right upper quadrant revealed gallbladder sludge but no obstructing stones. Urinalysis unremarkable. In the ED, given IV ketorolac, 1 L LR, and ondansetron. She will be observed overnight for possible gallstone pancreatitis. Hospital course: 43 year old female without any significant PMH admitted to [facility] for acute gallstone pancreatitis, she was noted to have, Lipase 400 --> 800 --> 225, LFTs wnl. Triglycerides WNL. Ct without evidence of acute intraabdominal abnormality, US abd shows gallbladder sludge, patient underwent laparoscopic cholecystectomy by General surgery cholangiogram g showed multiple small stones in the common bile duct with flow entering the duodenal, subsequently underwent ERCP 12/05 noted to have multiple small stones in common bile duct, underwent a sphincterotomy with good drainage of bile, with removal of sludge type material, no discrete stones were noted follow-up cholangiogram was normal with good drainage,now tolerating regular diet ,has mild nausea, good pain control ,therefore being discharged home on oxycodone, as needed antiemetics and Prilosec for heartburn , recommended outpatient follow-up with General surgery in 1 week. Time Attestation Discharge Coordination Time (in mins): 36 Quality: Safe Use of Opioids Does Pt have an Active Cancer Diagnosis on the Problem List?: No Quality: Stroke Does the patient have a stroke diagnosis?: No Physical Exam Vital Signs: Vital Signs: Last Vital Signs Temp 98 F 12/08/23 06:42 Pulse 65 12/08/23 06:42 Resp 16 12/08/23 06:42 BP 110/64 12/08/23 06:42 Pulse Ox 98 12/08/23 06:42 O2 Del Method Room Air 12/08/23 06:42 O2 Flow Rate 6 12/05/23 13:50 BMI result Body Mass Index 30.1 Const: Other: General awake alert x3, in no acute distress. Anicteric sclera Neck supple no JVD. CVS regular rate rhythm, Respiratory lungs clear to auscultation, no respiratory distress, no wheeze, no rhonchi. Gastrointestinal abdomen soft, tender to palpation at incision, no guarding, no rigidity, bowel sounds audible. Extremities no edema. Neuro non focal Skin no rash Psych appropriate affect DS: Data Data Completed and Pending Completed studies during hospitalization [Text1]: Pending at discharge 12/05/23 13:55 Surgical [PTH] Routine Discharge Plan Discharge Anticipated Discharge Date/Time: 12/07/23 15:48 Patient Disposition: Home, Self-Care Discharge Diagnosis: Acute gallstone pancreatitis Status post cholecystectomy Referrals: Araseli Fall MD [Physician] - 12/14/23 1:00 pm (NEW PATIENT/HOSPITAL FOLLOW-UP APPT. ) Percy Gibbs MD [Physician] - 1 Week Discharge Medications: New hydrocodone-acetaminophen 5-325 mg tablet 1 tab PO Q4-6H PRN (Reason: pain) Qty: 30 0RF Rx Instructions: Partial Fill upon patient request. omeprazole 20 mg capsule,delayed release(DR/EC) 20 mg PO DAILY Qty: 30 0RF ondansetron 4 mg tablet,disintegrating 4 mg PO Q8H PRN (Reason: nausea/vomiting) Qty: 14 0RF Continued Probiotic 1 cap PO DAILY norelgestromin-ethin.estradiol [Xulane] 150-35 mcg/24 hr patch weekly 1 patch transdermal QMONTH Rx Instructions: use 3 weeks, then off one week Discontinued ibuprofen 200 mg Tablet 400 mg PO Q6H PRN (Reason: Pain) Discharge Orders: Discharge Order (Routine); Ordered 12/08/23 Ordered By: Charity Alvarado Diet: Low fat, low cholesterol Activity on Discharge: No heavy lifting Stand Alone Forms: Patient Portal Discharge page Print Language: Mongolian Activity Restrictions/Additional Instructions: Ice to wound 20 minutes several times today and tomorrow. May shower in 2 days. Remove outside dressing only. Leave Steri-Strips intact. No strenuous activities Take oxycodone as needed for moderate to severe pain Take Tylenol for mild pain Take Zofran as needed for nausea and vomiting Care Plan Goals: Follow low-fat diet Avoid aspirin/ Motrin /Advil /all NSAIDs for 1 week Health Concerns: Continue home medication Plan of Treatment: Outpatient follow-up with General surgery Dr. Gibbs call for appointment in 1 week Assessment: As above
--- NOTE | 2023-12-08 10:09 | MHC.CM.PN ---
PT DCD HOME SELF CARE
== END 2023-12-08 10:27 | disposition home or self-care (01) | DRG 263 ==
LOC: HO.ED 13:10 → HO.EDOVER 15:08 → HO.S3 12-05 15:18
PROVIDERS: Emergency Medicine; Internal Medicine; Internal Medicine Gastroenterology; Physician Assistant Surgical; Surgery; Admitting Provider Physician Assistant; Emergency Provider Emergency Medicine Emergency Medical Services; PCP Family Medicine; Visit Provider Hospitalist
PROC: 0FT44ZZ Resection of Gallbladder, Percutaneous Endoscopic Approach (ICD-10-PCS; CPT 47562; principal; 2023-12-05 12:30)
PROC: (CPT 43260; principal; 2023-12-06 15:00)
DX: K85.10 Biliary acute pancreatitis without necrosis or infection (principal); K82.8 Other specified diseases of gallbladder; Z79.899 Other long term (current) drug therapy
CPT/HCPCS: 36415; 74177; 76705; 80048; 80053; 80076; 80307; 81001; 81025; 82248; 83615; 83690; 84478; 85025; 85610; 88304; 99285; C1769; J1100; J1170; J1610; J1885; J1956; J2250; J2270; J2405; J2704; J2765; J2795; J3010; J7120; Q9967

== ENCOUNTER → 2023-12-04 14:58 | Outpatient (BNV) | payer BC, SELFPAY | PROVIDERS: Admitting Provider Physician Assistant; Emergency Provider Emergency Medicine Emergency Medical Services; Visit Provider Surgery | DX: K85.90 Acute pancreatitis without necrosis or infection, unspecified (principal) | CPT/HCPCS: 47563; 99024; 99223; 99232 ==

== ENCOUNTER → 2023-12-05 13:04 | Outpatient (BNV) | payer BC, SELFPAY | PROVIDERS: Admitting Provider Physician Assistant; Emergency Provider Emergency Medicine Emergency Medical Services; Visit Provider Physician Assistant | DX: K85.90 Acute pancreatitis without necrosis or infection, unspecified (principal); K83.8 Other specified diseases of biliary tract | CPT/HCPCS: 99222; 99232; 99239 ==

== ENCOUNTER 2023-12-19 13:06 | Outpatient (AMB) | payer BC, SELFPAY ==
--- NOTE | 2023-12-19 13:10 | MHC.OFFVIS ---
Intake Visit Reasons: follow up after cholecystectomy Intake Note: Patient here s/p lap geroge. Reports incisions healing well. Patient c/o: reports no complaints. SX: 12-05-23. Concrete Mixer Required: No Accompanied by: Self / Same As Patient Allergies No Known Allergies Allergy (Verified 12/19/23 13:16) HPI Comments Details: Patient presents for follow-up. Aside from incisional discomfort which is improving she is doing okay. Patient has not had a good bowel movement yet. She is weaned off her narcotics. She is increasing her activity level. 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 All wounds clean dry and intact healing well Assessment & Plan Assessment & Plan (1) Status post cholecystectomy: Code(s): Z90.49 - Acquired absence of other specified parts of digestive tract Category: Medical Plan Patient has been given local instructions including avoiding strenuous activities, and no for returned to work in 2 weeks time, and will otherwise follow-up p.r.n.. All questions answered. Recommendations for her constipation issue were also provided. Coding Level of Care Code Global (54444) Diagnoses Status post cholecystectomy Z90.49
== END 2023-12-19 13:37 | disposition home or self-care (01) ==
PROVIDERS: PCP Family Medicine; Visit Provider Surgery
DX: Z90.49 Acquired absence of other specified parts of digestive tract (principal)
CPT/HCPCS: 99024

== ENCOUNTER → 2023-12-19 13:06 | Outpatient (BNVA) | payer BC, SELFPAY | PROVIDERS: PCP Family Medicine; Visit Provider Surgery ==

== ENCOUNTER 2024-01-18 11:17 | Emergency (ER) | payer BC, SELFPAY ==
--- NOTE | ~2024-01-18 | US_ITS ---
EXAMINATION: US VENOUS WITH DOPPLER UPPER EXTREMITY, RIGHT CLINICAL INFORMATION: History of venous thrombosis. Pain. Concern for recurrent thrombus. COMPARISON: None available. TECHNIQUE: Ultrasound of the upper extremity is performed using compression sonography and color and pulse Doppler flow with assessment of augmentation of flow. There is also imaging and Doppler assessment of the jugular and subclavian veins. Spectral analysis with color-flow imaging is performed. FINDINGS: Color Doppler images with spectral waveforms show normal pulsatile flow within the right internal jugular, subclavian and axillary veins. No venous thrombosis. Within the upper arm, the brachial, basilic and cephalic veins are normal. Within the forearm, the grayscale and color Doppler images show normal radial and ulnar veins. US/US venous duplex UE RT IMPRESSION: No evidence of superficial or deep vein thrombosis in the right upper extremity.
[2024-01-18 11:24] VITALS: BP 131/80; PULSE 84; RESP 18; TEMP 35.9; O2SAT 99; BMI 26.0
--- NOTE | 2024-01-18 11:24 | ED.GENADULT ---
HPI - General Adult General Chief complaint: Extremity Injury, Upper Stated complaint: pcp sent for possible blood clot Time Seen by Provider: 01/18/24 11:38 Source: patient Mode of arrival: ambulatory Limitations: no limitations History of Present Illness ED Provider: scot [facility] narrative: Patient is a 43-year-old female with recent cholecystectomy who then subsequently developed right forearm DVT in November of this year. PCP started her on Eliquis which she has been taking as prescribed. She was out of work to to surgery and recently returned to work. She states that she has not been lifting more than 10 lb but has been using her arm more and caring her bags into work etc.. She denies any chest pain, palpitations, shortness of breath. Denies any dizziness, lightheadedness, syncope. MD complaint: Right forearm pain Onset (ago): day(s) Severity: mild Quality: aching Pain Consistency: constant Associated symptoms: denies other symptoms Treatments prior to arrival: other Related Data Home Medications ?Medication ?Instructions ?Recorded ?Confirmed Probiotic 1 cap PO DAILY 12/04/23 12/04/23 norelgestromin 150 mcg-e.estradiol 1 patch transdermal QMONTH 12/04/23 12/04/23 35 mcg/24 hr weekly transderm patch (Xulane) rivaroxaban 15 mg (42)-20 mg (9) 0 ea PO 12/19/23 tablets in a starter pack (Xarelto DVT-PE Treatment 30-Day Starter) Previous Rx's ?Medication ?Instructions ?Recorded hydrocodone 5 mg-acetaminophen 325 1 tab PO Q4-6H PRN pain #30 tabs 12/05/23 mg tablet omeprazole 20 mg capsule,delayed 20 mg PO DAILY #30 caps 12/07/23 release ondansetron 4 mg disintegrating 4 mg PO Q8H PRN nausea/vomiting 12/08/23 tablet #14 tabs Allergies Allergy/AdvReac Type Severity Reaction Status Date / Time No Known Allergies Allergy Verified 01/18/24 11:25 Review of Systems Review of Systems: As per HPI. Yes all other systems are reviewed and are negative Constitutional: Constitutional: Reports as per HPI [facility] Past Medical History Medical History Recent weight loss Pyelonephritis Surgical History S/P laparoscopic cholecystectomy Hx of wisdom tooth extraction Family History Family History Brother Heart attack, Onset Age: 42 Family/Other Heart attack, Onset Age: 42 Social History Social History Household Members: None Housing: Apartment Do you presently have visiting nurse or other home services: No Alcohol intake: never Comment: counts correct Patient Tobacco Use Status: Never used Tobacco Advance Directives: No Advance Directives Information Provided: Yes Do you have a plan to hurt others: No Plan service: No Current occupational status: employed 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 Blood pressure normal. Heart rate normal. Respiratory rate normal. Temperature normal. Oxygen saturation normal. Const General: cooperative, healthy appearing and no acute distress Orientation/consciousness: oriented to person, oriented to place, oriented to time and patient oriented x3 Limitations: no limitations HENMT Head: Yes normocephalic and Yes atraumatic Ears: external ears normal General nose exam: Normal external nose present Face and sinus: Yes face symmetric Mouth: oropharynx normal and moist mucous membranes Throat: Yes uvula midline Eyes Pupils: Equal, round and reactive pupils present Neck Neck: Yes normal visual inspection and Yes supple Resp Effort & Inspection: normal respiratory effort and able to speak in complete sentences Auscultation: clear to auscultation bilaterally Cardio Rate: regular rate Rhythm: regular rhythm Heart sounds: S1 normal heart sound present and S2 normal heart sound present GI Palpation (GI): Soft to palpation and nontender Auscultation: normoactive bowel sounds General: Yes no CVA tenderness Back/Spine/Pelvis Back: no CVA tenderness Skin General skin exam: elasticity normal and turgor normal Neuro General: oriented to person, oriented to place, oriented to time, patient oriented x3, moves all extremities, no focal motor deficits and CN's II-XI intact bilaterally Cranial nerves: Yes Equal, round and reactive pupils present Cognition (Neuro): normal cognition Extrem General: Yes full ROM, Yes no pedal edema and Yes no calf tenderness Right upper extremity: elbow/forearm Details: normal to inspection, tenderness Location: proximal forearm (anterior aspect) and distal pulses intact; no swelling, no unusual warmth and no ecchymosis Psych Mental Status: mental status grossly normal Affect: normal affect Thought process: Normal thought process present Course Course Course Narrative: RME performed by Maryse Charles PA-C. Patient is a 43 year old assigned female at presenting to the emergency department with right arm pain. Patient states that she was diagnosed with a blood clot on 12/14/2023 in her right arm, has been on anti-coagulant therapy but is having pain again that is new for her. Detailed physical exam and review of systems are deferred to the speech clinician. EKG, labs, and imaging ordered. Patient placed back in the waiting room pending room availability and results. Medical Decision Making Medical Decision Making [facility] Narrative: Patient is a 43-year-old female with recent cholecystectomy who then subsequently developed right forearm DVT in November of this year. On exam patient is awake, A+Ox3, VS WNL, afebrile, normal neurological exam without focal deficits, physical exam findings as above. Given reported symptoms and physical exam findings, initial differential includes DVT, muscle strain. Unlikely fracture. Labs unremarkable. EKG shows NSR. Ultrasound notable for no evidence of DVT. My interpretation is in agreement with the radiologist's interpretation. Patient updated on results. Advised patient to continue on Eliquis as previously prescribed and follow-up with PCP. Return precautions discussed. Patient verbalized understanding of and agreement with plan. Differential Diagnosis Differential Diagnoses: The differential diagnosis associated with the presentation includes As per [facility]. Admission/Observation Consideration of admission/observation: Escalation of care including admission/observation considered Patient would have been admitted to the hospital had their work up had any findings where hospital admission was appropriate and their clinical presentation warranted hospital admission. Lab Data [facility] Lab Attestation statement: I reviewed the patient's lab results. As per [facility] 01/18/24 11:33 01/18/24 11:33 Labs: Lab Results 01/18/24 Range/Units 11:33 WBC 5.1 (4.8-10.8) X10*3/uL RBC 4.31 (4.20-5.50) X10*6/uL Hgb 12.1 (12.0-16.0) g/dl Hct 36.4 L (37.0-47.0) % MCV 84.5 (80.0-98.0) fL MCH 28.1 (27.0-33.0) pg MCHC 33.2 (31.0-35.0) g/dl RDW 12.6 (11.0-16.0) % Plt Count 171 (160-400) X10*3/uL MPV 9.2 L (9.4-12.3) fL Immature Gran % (Auto) 0.2 (0.0-0.4) % Neut % (Auto) 48.5 (45-73) % Lymph % (Auto) 39.6 (20-40) % [place] % (Auto) 8.4 (2-11) % Eos % (Auto) 2.3 (0-4) % Baso % (Auto) 1.0 (0-2) % Lymph # (Auto) 2.0 (1.2-4.9) X10*3/uL [place] # (Auto) 0.4 (0.1-1.2) X10*3/uL Eos # (Auto) 0.1 (0.0-0.4) X10*3/uL Baso # (Auto) 0.1 (0.0-0.2) X10*3/uL Abs Immat Gran (auto) 0.01 (0.00-0.03) X10*3/uL Absolute Neuts (auto) 2.5 (2.0-8.3) x10*3/uL Absolute Nucleated RBC 0.000 (0.0-0.012) X10*3/uL Nucleated RBC % (auto) 0.0 (0.0-0.2) /100WBC PT 21.9 H D (11.1-13.3) SEC INR 1.8 H (0.9-1.1) APTT 43.5 H (26.0-36.8) SEC Sodium 140 (135-145) mmol/L Potassium 3.9 (3.3-5.1) mmol/L Chloride 108 (96-108) mmol/L Carbon Dioxide 26 (22-29) mmol/L Anion Gap 10 L (12-20) BUN 10 (9-16) mg/dL Creatinine 0.72 (0.5-1.4) mg/dL Estim Creat Clear Calc 112.5 Estimated GFR > 60 Random Glucose 96 (60-115) mg/dL Calcium 9.4 D (8.4-10.2) mg/dL Magnesium 2.0 (1.6-2.6) mg/dL Total Bilirubin 0.4 (0.0-1.0) mg/dL AST 20 (5-31) U/L ALT 20 (0-31) U/L Alkaline Phosphatase 81 (39-117) U/L Troponin I High Sens < 2.7 (<3.5-17.0) ng/L Total Protein 7.1 (6.5-8.0) g/dL Albumin 4.2 (3.5-5.0) g/dL Independent Interpretation I performed an independent interpretation of an: EKG (normal sinus rhythm, rate 73bpm, normal MO interval and QTc) and Ultrasound Interpretation: No evidence of DVT right upper extremity Radiology Impression Discussion of test interpretation with radiology: I have reviewed the radiologist's reading. Radiologist Impression: US/US venous duplex UE RT IMPRESSION: No evidence of superficial or deep vein thrombosis in the right upper extremity. External Record Review External record reviewed: Inpatient record, Office record and Outpatient record Discharge Plan Discharge Clinical Impression: Pain of right forearm Patient Disposition: Home, Self-Care Additional Instructions: You were evaluated in the emergency department today for right forearm pain. Your ultrasound did not show evidence of a DVT, also known as a blood clot. Please continue to take your Eliquis as prescribed by your primary care provider and follow-up with your PCP as previously planned. Return to the emergency department if you develop increasing pain, new weakness, numbness, or tingling, or change of color to your arm or any other concerning symptoms. Prescriptions: No Action Probiotic 1 cap PO DAILY norelgestromin-ethin.estradiol [Xulane] 150-35 mcg/24 hr patch weekly 1 patch transdermal QMONTH Rx Instructions: use 3 weeks, then off one week hydrocodone-acetaminophen 5-325 mg tablet 1 tab PO Q4-6H PRN (Reason: pain) Qty: 30 0RF Rx Instructions: Partial Fill upon patient request. omeprazole 20 mg capsule,delayed release(DR/EC) 20 mg PO DAILY Qty: 30 0RF ondansetron 4 mg tablet,disintegrating 4 mg PO Q8H PRN (Reason: nausea/vomiting) Qty: 14 0RF Xarelto DVT-PE Treat 30d Start 15 mg (42)- 20 mg (9) tablets,dose pack 0 ea PO Print Language: Irish
--- NOTE | 2024-01-18 11:26 | ECG_ITS ---
Test Reason : tacky Blood Pressure : / mmHG Vent. Rate : 073 BPM Atrial Rate : 073 BPM P-R Int : 134 ms QRS Dur : 086 ms QT Int : 400 ms P-R-T Axes : 026 009 036 degrees QTc Int : 440 ms Normal sinus rhythm Normal ECG No previous ECGs available Referred By: Maryse Charles Electronically Signed By:Robbie Morrison
[2024-01-18 11:36] LABS: MANUAL DIFF FLAG NO
[2024-01-18 11:39] LABS: Basophils Absolute Auto 0.1 X10*3/uL (0.0-0.2); Eosinophils Absolute Auto 0.1 X10*3/uL (0.0-0.4); Eosinophils Percent Auto 2.3 % (0-4); Hematocrit 36.4 % (37.0-47.0); Hemoglobin 12.1 g/dl (12.0-16.0); Imm Gran Abs Auto 0.01 X10*3/uL (0.00-0.03); Imm Gran Pct Auto 0.2 % (0.0-0.4); Lymphocytes Percent Auto 39.6 % (20-40); Mean Corpuscular HGB Conc 33.2 g/dl (31.0-35.0); Mean Corpuscular Hemoglobin 28.1 pg (27.0-33.0); Mean Corpuscular Volume 84.5 fL (80.0-98.0); Mean Platelet Volume 9.2 fL (9.4-12.3); Monocytes Absolute Auto 0.4 X10*3/uL (0.1-1.2); Monocytes Percent Auto 8.4 % (2-11); Neutrophils Absolute Auto 2.5 x10*3/uL (2.0-8.3); Neutrophils Percent Auto 48.5 % (45-73); Platelet Count 171 X10*3/uL (160-400); Red Blood Count 4.31 X10*6/uL (4.20-5.50); Red Cell Distribution Width 12.6 % (11.0-16.0); White Blood Count 5.1 X10*3/uL (4.8-10.8)
[2024-01-18 11:48] LABS: INTERNATIONAL NORM RATIO 1.8 (0.9-1.1); Prothrombin Time 21.9 SEC (11.1-13.3)
[2024-01-18 11:50] LABS: Partial Thromboplastin Time 43.5 SEC (26.0-36.8)
[2024-01-18 11:53] LABS: Alanine Aminotransferase 20 U/L (0-31); Albumin Level 4.2 g/dL (3.5-5.0); Alkaline Phosphatase 81 U/L (39-117); Anion Gap 10 (12-20); Aspartate Amino Transferase 20 U/L (5-31); Bilirubin Total 0.4 mg/dL (0.0-1.0); Blood Urea Nitrogen 10 mg/dL (9-16); Calcium 9.4 mg/dL (8.4-10.2); Carbon Dioxide 26 mmol/L (22-29); Chloride 108 mmol/L (96-108); Creatinine Clr Calc Pharmacy 112.5; Estimated Glomerular Filt Rate > 60; Glucose Random 96 mg/dL (60-115); Potassium 3.9 mmol/L (3.3-5.1); Sodium 140 mmol/L (135-145); Total Protein 7.1 g/dL (6.5-8.0)
[2024-01-18 12:01] LABS: Troponin-I High Sensitivity < 2.7 ng/L (<3.5-17.0)
[2024-01-18 13:31] VITALS: BP 102/57; PULSE 63; RESP 22; TEMP 36.7; O2SAT 99
[2024-01-18 13:33] VITALS: BP 102/57; PULSE 63; RESP 22; TEMP 36.7; O2SAT 99
== END 2024-01-18 13:33 | disposition home or self-care (01) ==
PROVIDERS: Physician Assistant Medical; Emergency Provider Emergency Medicine; PCP Family Medicine
DX: M79.631 Pain in right forearm (principal); R60.0 Localized edema; R00.0 Tachycardia, unspecified; Z79.899 Other long term (current) drug therapy
CPT/HCPCS: 36415; 80053; 83735; 84484; 85025; 85610; 85730; 93005; 93971; 99283; 99284

== ENCOUNTER → 2024-01-18 11:26 | Outpatient (BNV) | payer BC, SELFPAY | PROVIDERS: Emergency Provider Emergency Medicine; PCP Family Medicine; Visit Provider Internal Medicine Cardiovascular Disease | DX: R00.0 Tachycardia, unspecified (principal) | CPT/HCPCS: 93010 ==